=== PATIENT | female | born 1970 | race African-American/Black ===

== ENCOUNTER 2016-06-11 17:02 | Inpatient (IN) | payer BC ==
[~2016-06-11] VITALS: Ht 167.6 cm; Wt 112.5 kg
[~2016-06-11 17:02] MED LIST: CIPR10DR AD; HYDR15SO4 PO
[2016-06-11] MEDS ORDERED: CETIRIZINE HCL 10 MG TABLET PO ONE (18:30)
[2016-06-11] MEDS ORDERED: CEPHALEXIN 250 MG CAPSULE PO ONE (18:30)
--- NOTE | 2016-06-11 18:58 | PHYS DOC ---
Past Medical History Past Medical History: Hypertension Past Surgical History: Hysterectomy Additional Past Surgical Histo: PART.HYST Alcohol Use: Rarely Drug Use: None Adult General Chief Complaint Chief Complaint: SHORTNESS OF BREATH HPI HPI Patient is a 46 year old female who presents with shortness of breath. Patient reports for a couple days leading up to a hysterectomy last Saturday, and since then she has been having mild shortness of breath. She reports this waxes and wanes with no clear inciting or mitigating factors. She says she has had this in the past, and it was relieved by Zyrtec. She has not taken any of that medication during this episode. She also reports that her primary care physician restarted her on lisinopril last Saturday after her blood pressure was noted be elevated. She denies any chest discomfort. No other acute complaints. Review of Systems Review of Systems Constitutional: Denies fever or chills Eyes: Denies change in visual acuity or eye pain HENT: Denies nasal congestion or sore throat Respiratory: Shortness of breath Cardiovascular: Denies chest pain GI: Denies abdominal pain, nausea, vomiting, bloody stools or diarrhea : Denies dysuria or hematuria Musculoskeletal: Denies back pain or joint pain Integument: Denies rash or skin lesions Neurologic: Denies headache, focal weakness or sensory changes Current Medications Current Medications Allergies Allergies Allergies Coded Allergies Type Severity Reaction Last Updated Verified No Known Drug Allergies 06/07/13 No Physical Exam Physical Exam Constitutional: Well developed, well nourished, no acute distress, non-toxic appearance HENT: Normocephalic, atraumatic, bilateral external ears normal Eyes: EOMI, conjunctiva normal, no discharge Neck: Normal range of motion, no stridor Cardiovascular: Heart rate normal, regular rhythm, no murmur Lungs & Thorax: Bilateral breath sounds clear to auscultation Abdomen: Bowel sounds normal, soft, non-distended, no TTP Skin: Warm, dry, no erythema, no rash Extremities: No obvious deformity, no edema Neurologic: Alert and oriented X 3, no gross deficits noted Psychologic: Affect normal, judgement normal, mood normal Current Patient Data Vital Signs Vital Signs Date Time Temp Pulse Resp B/P Pulse Ox O2 Delivery O2 Flow Rate FiO2 06/11/16 17:43 98.2 84 20 168/79 100 Room Air 98.2 EKG EKG EKG (my read): sinus rhythm, rate 87, borderline LAD, no acute ST changes Radiology/Procedures Radiology/Procedures CXR (my read): No significant change from prior CTA chest: IMPRESSION: 1. No CT evidence of PE or focal consolidation. 2. Scattered foci of free air visualized within the imaged upper abdomen. This was relayed to the ordering physician at 22:05 on 06/11/16. Course & Med Decision Making Course & Med Decision Making Pertinent Labs and Imaging studies reviewed. (See chart for details) Patient is 46-year-old female who presents with shortness of breath. Will check EKG, chest x-ray, labs to evaluate. Dose of Zyrtec ordered as patient says she has had these symptoms in the past and Zyrtec helped relieve then. Labs notable for mild anemia as well as elevated troponin. Dose of aspirin ordered. Will obtain CTA chest to evaluate for possibility of PE. CTA results as above; air in abdomen presumably related to recent hysterectomy, especially as patient does not have any abdominal pain or tenderness. Discussed results with patient, whose symptoms remain only mild shortness of breath. Discussed with Dr. Tinsley. Discussed with Dr. Little, will admit under her care for further evaluation and treatment. Dragon Disclaimer Dragon Disclaimer This electronic medical record was generated, in whole or in part, using a voice recognition dictation system. Departure Departure Impression: Primary Impression: SOB (shortness of breath) Additional Impression: Elevated troponin Disposition: ADMITTED INPATIENT Admitting Physician: Maranda Little Condition: GUARDED Referrals: CESAR HOWARD MD (PCP) Problem Qualifiers TAYLA NAVARRETE MD Jun 11, 2016 18:58
[2016-06-11 19:45] LABS: BASO % 1 % (0-3); EOS % 0 % (0-3); HEMATOCRIT 32.9 % (36.0-47.0); HEMOGLOBIN 10.4 g/dL (12.0-15.5); LYMPH # 1.7 x10^3/uL (1.0-4.8); LYMPH % 23 % (24-48); MEAN CORPUSCULAR HEMOGLOBIN 26 pg (25-35); MEAN CORPUSCULAR HGB CONC 32 g/dL (31-37); MEAN CORPUSCULAR VOLUME 83 fL (79-100); MONO % 6 % (0-9); NEUT % 71 % (31-73); PLATELET COUNT 114 x10^3/uL (140-400); RED BLOOD COUNT 3.97 x10^6/uL (3.50-5.40); RED CELL DISTRIBUTION WIDTH 16.9 % (11.5-14.5); WHITE BLOOD COUNT 7.7 x10^3/uL (4.0-11.0)
[2016-06-11 20:00] LABS: CALCIUM 9.1 mg/dL (8.5-10.1); CREATININE 0.8 mg/dL (0.6-1.0); GFR 94.3; POTASSIUM 3.5 mmol/L (3.5-5.1)
[2016-06-11] MEDS ORDERED: ACETAMINOPHEN 325 MG TABLET. PO PRN ×2 (20:30→20:45)
[2016-06-11] MEDS ORDERED: ONDANSETRON PF 4 MG/2 ML VIAL. IV PRN ×2 (20:30→20:45)
[2016-06-11] MEDS ORDERED: ASPIRIN 81 MG TAB.CHEW PO ONE (20:30)
[2016-06-11] MEDS ORDERED: MORPHINE SULFATE 2 MG/ML DISP.SYRIN. IV PRN (20:30)
--- NOTE | 2016-06-11 20:44 | PDOC1 ---
History and Physical Date of Admission Date of Admission 06/11/16 Identification/Chief Complaint Chief Complaint sob Problems: Source Source: Chart review, Patient History of Present Illness History of Present Illness HPI HPI Patient is a 46 year old female who presents with shortness of breath for 1 week. She has had sob before she got the partial hysterectomy last Sat for fibroids. Pt looks very calm, not sob to me, but she feels sob even now with some anxiety. She said it is intermittent, no cough, no fever, chills,can happen anytime, not exertional. Denies chest pain. She said she feels sob comes with high BP. PMH + with mother and brother had [place]. She says she has had this in the past, and it was relieved by Zyrtec. She also reports that her primary care physician restarted her on lisinopril last Saturday after her blood pressure was noted be elevated. Past Medical History Cardiovascular: HTN Past Surgical History Past Surgical History: Hysterectomy Family History Family History: Heart Disease Social History Smoke: No ALCOHOL: social Drugs: None Current Problem List Problem List Problems Medical Problems: (1) Elevated troponin Status: Acute (2) SOB (shortness of breath) Status: Acute Current Medications Current Medications Current Medications Medications (Trade) Dose Ordered Sig/Andrew Start Time Stop Time Status Last Admin Dose Admin Acetaminophen (Tylenol) 650 mg PRN Q4HRS PRN 06/11/16 20:30 06/12/16 20:29 Aspirin (Children'S Aspirin) 324 mg 1X ONCE 06/11/16 20:30 06/11/16 20:31 DC 06/11/16 20:23 324 MG Cephalexin HCl (Keflex) 500 mg 1X ONCE 06/11/16 18:30 06/11/16 18:30 DC Cetirizine HCl (Zyrtec) 10 mg 1X ONCE 06/11/16 18:30 06/11/16 18:34 DC 06/11/16 19:20 10 MG Morphine Sulfate 2 mg PRN Q2HR PRN 06/11/16 20:30 06/12/16 20:29 Ondansetron HCl (Zofran) 4 mg PRN Q8HRS PRN 06/11/16 20:30 06/12/16 20:29 Allergies Allergies Allergies Coded Allergies Type Severity Reaction Last Updated Verified No Known Drug Allergies 06/07/13 No ROS Review of System CONSTITUTIONAL: No fever or chills EYES: No recent changes SKIN: No rash or itching CARDIOVASCULAR: No chest pain, syncope, palpitations, or edema RESPIRATORY: No SOB or cough GASTROINTESTINAL: No nausea, vomiting or abdominal pain NEUROLOGICAL: No headaches or weakness ENDOCRINE: No cold or heat intolerance GENITOURINARY: No urgency or frequency of urination MUSCULOSKELETAL: No back pain or joint pain LYMPHATICS: No enlarged lymph nodes PSYCHIATRIC: No anxiety or depression Physical Exam Physical Exam GEN.: No apparent distress. Alert and oriented. HEENT: Head is normocephalic, atraumatic NECK: Supple. LUNGS: Clear to auscultation. HEART: RRR, S1, S2 present. Peripheral pulses intact ABDOMEN: Soft, nontender. Positive bowel sounds. EXTREMITIES: Without any cyanosis. NEUROLOGIC: Normal speech, normal tone PSYCHIATRIC: Normal affect, normal mood. SKIN: No ulcerations Vitals Vitals Vital Signs Date Time Temp Pulse Resp B/P Pulse Ox O2 Delivery O2 Flow Rate FiO2 06/11/16 20:03 74 153/81 99 Room Air 06/11/16 17:43 98.2 20 98.2 Labs Labs Laboratory Tests Test 06/11/16 19:25 White Blood Count 7.7x10^3/uL (4.0-11.0) Red Blood Count 3.97x10^6/uL (3.50-5.40) Hemoglobin 10.4g/dL (12.0-15.5) Hematocrit 32.9% (36.0-47.0) Mean Corpuscular Volume 83fL (79-100) Mean Corpuscular Hemoglobin 26pg (25-35) Mean Corpuscular Hemoglobin Concent 32g/dL (31-37) Red Cell Distribution Width 16.9% (11.5-14.5) Platelet Count 114x10^3/uL (140-400) Neutrophils (%) (Auto) 71% (31-73) Lymphocytes (%) (Auto) 23% (24-48) Monocytes (%) (Auto) 6% (0-9) Eosinophils (%) (Auto) 0% (0-3) Basophils (%) (Auto) 1% (0-3) Neutrophils # (Auto) 5.4x10^3uL (1.8-7.7) Lymphocytes # (Auto) 1.7x10^3/uL (1.0-4.8) Monocytes # (Auto) 0.4x10^3/uL (0.0-1.1) Eosinophils # (Auto) 0.0x10^3/uL (0.0-0.7) Basophils # (Auto) 0.0x10^3/uL (0.0-0.2) Sodium Level 142mmol/L (136-145) Potassium Level 3.5mmol/L (3.5-5.1) Chloride Level 104mmol/L (98-107) Carbon Dioxide Level 28mmol/L (21-32) Anion Gap 10 (6-14) Blood Urea Nitrogen 9mg/dL (7-20) Creatinine 0.8mg/dL (0.6-1.0) Estimated GFR (Cockcroft-Gault) 94.3 Glucose Level 96mg/dL (70-99) Calcium Level 9.1mg/dL (8.5-10.1) Troponin I Quantitative 0.071ng/mL (0.000-0.055) Laboratory Tests Test 06/11/16 19:25 White Blood Count 7.7x10^3/uL (4.0-11.0) Red Blood Count 3.97x10^6/uL (3.50-5.40) Hemoglobin 10.4g/dL (12.0-15.5) Hematocrit 32.9% (36.0-47.0) Mean Corpuscular Volume 83fL (79-100) Mean Corpuscular Hemoglobin 26pg (25-35) Mean Corpuscular Hemoglobin Concent 32g/dL (31-37) Red Cell Distribution Width 16.9% (11.5-14.5) Platelet Count 114x10^3/uL (140-400) Neutrophils (%) (Auto) 71% (31-73) Lymphocytes (%) (Auto) 23% (24-48) Monocytes (%) (Auto) 6% (0-9) Eosinophils (%) (Auto) 0% (0-3) Basophils (%) (Auto) 1% (0-3) Neutrophils # (Auto) 5.4x10^3uL (1.8-7.7) Lymphocytes # (Auto) 1.7x10^3/uL (1.0-4.8) Monocytes # (Auto) 0.4x10^3/uL (0.0-1.1) Eosinophils # (Auto) 0.0x10^3/uL (0.0-0.7) Basophils # (Auto) 0.0x10^3/uL (0.0-0.2) Sodium Level 142mmol/L (136-145) Potassium Level 3.5mmol/L (3.5-5.1) Chloride Level 104mmol/L (98-107) Carbon Dioxide Level 28mmol/L (21-32) Anion Gap 10 (6-14) Blood Urea Nitrogen 9mg/dL (7-20) Creatinine 0.8mg/dL (0.6-1.0) Estimated GFR (Cockcroft-Gault) 94.3 Glucose Level 96mg/dL (70-99) Calcium Level 9.1mg/dL (8.5-10.1) Troponin I Quantitative 0.071ng/mL (0.000-0.055) VTE Prophylaxis Ordered VTE Prophylaxis Devices: Yes VTE Pharmacological Prophylaxi: Yes Assessment/Plan Assessment/Plan 1. dyspnea 2. elevated troponin 3. HTN 4. recent hysterectomy 5. anemia, with 4 plan: 1. card consult 2. check tsh, lipid panel, echo, cycle CE 3. CTA pending to rule out PE 4. need home meds dvt ppx NIVIA YUN MD Jun 11, 2016 20:44
[2016-06-11] MEDS ORDERED: hydrALAZINE 20 MG/ML VIAL. IVP PRN (20:45)
[2016-06-11] MEDS ORDERED: CONTRAST GIVEN MC PRN (21:00)
[2016-06-11] MEDS ORDERED: ENOXAPARIN 40 MG/0.4 ML DISP.SYRIN. SQ SCH (21:00)
[2016-06-11 21:30] VITALS: BP 172/98
[2016-06-11] MEDS ORDERED: IOHEXOL 300 MG/ML 75 ML VIAL IV ONE (21:30)
--- NOTE | 2016-06-11 22:09 | RAD ---
INDICATION: 46-year-old female with shortness of breath, elevated troponin. COMPARISON: None TECHNIQUE: Axial CT images obtained through the chest following the intravenous administration of 75 cc of Omni 300, utilizing an angiogram protocol. 3D images processed per protocol. One or more of the following individualized dose reduction techniques were utilized for this examination: 1. Automated exposure control; 2. Adjustment of the mA and/or kV according to patient size; 3. Use of iterative reconstruction technique. FINDINGS: The pulmonary arteries are opacified without evidence of main, lobar or proximal segmental filling defects to suggest pulmonary embolus. Distal segmental and subsegmental arteries are not adequately opacified. The aorta is normal in caliber. The heart is normal in size without pericardial effusion. No significant mediastinal or hilar lymphadenopathy is seen. No focal consolidation, pleural effusion or pneumothorax is present. The central airways appear patent. The visualized osseous structures and overlying soft tissues demonstrate no acute or suspicious finding. The visualized neck base demonstrates no acute finding. The visualized upper abdomen contains scattered foci of free air about the liver and anteriorly within the upper abdomen, including along the gastric cardia. IMPRESSION: 1. No CT evidence of PE or focal consolidation. 2. Scattered foci of free air visualized within the imaged upper abdomen. This was relayed to the ordering physician at 22:05 on 06/11/16. Electronically signed by: Tracey Ferrara (Jun 11, 2016 22:07:59)
[2016-06-11] MEDS ORDERED: LISI40TA PO (22:23)
[2016-06-11 23:17] VITALS: BP 164/98
--- NOTE | 2016-06-12 00:44 | ACF ---
Admission Forms Criteria CARDIOLOGY GRG Clinical Indications for Admission to Inpatient Care ( Place 'X' for any and all applicable criteria): Hospital admission is needed for appropriate care of the patient because of ANY ONE of the following (1): [ ] I. Hemodynamic instability as indicated by ALL of the following (1)(2)(3) (4)(5) [ ]a) Vital signs or other findings not as expected for chronic patient condition or baseline [ ]b) Instability indicated by ANY ONE of the following: [ ]i) Hypotension [ ]ii) Symptomatic Tachycardia unresponsive to treatment ( e.g., analgesia, fluids, sedation as indicated) [ ]iii) Inadequate perfusion indicated by ANY ONE of the following: [ ] 1) Lactic acidosis (> 2 mmol/L) [ ] 2) New abnormal capillary refill (> 3 seconds) [ ] 3) Reduced urine output [ ] 4) New altered mental status [ ]iv) Orthostatic vital sign changes unresponsive to treatment (e.g., fluids) [ ]v) IV inotropic or vasopressor medication required to maintain adequate blood pressure or perfusion [ ] II. Severe heart failure as indicated by ANY ONE of the following(17)(18) [ ]a) Respiratory distress [ ]b) Hypotension [ ]c) Anasarca (refractory to outpatient therapy) [ ]d) Cardiac arrhythmias of immediate concern [ ]e) Myocardial ischemia [ ] III. Cardiac arrhythmias or findings of immediate concern indicated by ANY ONE of the following (19)(20): [ ] a) Heart rhythms that are inherently dangerous or unstable indicated by ANY ONE of the following (21)(22)(23): [ ] i) Resuscitated ventricular fibrillation or cardiac arrest [ ] ii) Ventricular escape rhythm [ ] iii) Sustained ventricular tachycardia (30 seconds or more of ventricular rhythm at greater than 100 beats per minute) [ ] iv) Nonsustained ventricular tachycardia and ANY ONE of the following: [ ] 1) Suspected cardiac ischemia as cause or consequence of ventricular tachycardia [ ] 2) In setting of acute myocarditis [ ] b) Unstable cardiac conduction defects indicated by ANY ONE of the following(23)(24)(25) [ ] i) Type II second-degree atrioventricular block [ ]ii) Third-degree atrioventricular block [ ]iii) New-onset left bundle branch block with suspected myocardial ischemia [ ]c) Any heart rhythm and ANY ONE of the following (21)(22)(26)(27) (28) [ ] i) Continuous long-term ECG monitoring needed (e.g., initiation of drug requiring monitoring for more than 24 hours) [ ] ii) Patient has automatic implanted cardioverter defibrillator that is repeatedly firing, malfunctioning, or in need of immediate adjustment of settings beyond the scope of ambulatory or observation care [ ]d) Heart rhythms of concern due to ANY ONE of the following: [ ] i) Hypotension [ ] ii) Respiratory distress [ ] iii) Association with other significant symptoms (e.g., bradycardia with syncope or ongoing dizziness, supraventricular tachycardia with chest pain (14)(15)(17) [ ] IV. Monitoring for cardiac contusion beyond the scope of observation care needed [A](30)(31)(32) [ ] V. Surgical or device complication (e.g., valve replacement complication , pacemaker dysfunction) (35)(41)(44)(45)(46) [ ] . Inpatient palliative care needed. [B](49) Also use Inpatient Palliative Care Criteria [ ] VII. Nonbacterial thrombotic (marantic) endocarditis (36)(43)(47)(48) [X] VIII. Cardiology condition, symptom, or finding for which emergency and observation care has failed or are not considered appropriate. [ ] IX. Acute valvular disease requiring inpatient as indicated by ANY ONE of the following (41) [ ]a) Acute valvular regurgitation (42) [ ]b) Noninfectious valvulitis (43) [ ]c) Obstructive valve thrombosis [ ]d) Paravalvular leak [ ]e) Other significant valvular disorder remaining after emergency or observation level of care (as appropriate) [ ]X. Pericardial disease requiring inpatient treatment as indicated by ANY ONE of the following (33)(34)(35)(36)(37) [ ]a) Suspected tamponade (38)(39)(40) [ ]b) Hemopericardium [ ]c) Other significant pericardial disorder remaining after emergency or observation level of care (as appropriate) [ ] XI. Cardiac ischemia beyond scope of emergency and observation care. [ ] XII. Hypertension requiring inpatient treatment as indicated by ANY ONE of the following (6)(7)(8) [ ]a) SBP greater than 220 mm Hg or DBP greater than 120 mmHg despite treatment [ ]b) SBP greater than 140 mm Hg or DBP greater than 100 mm Hg with evidence of acute end organ damage as indicated by ANY ONE of the following [ ] i) Encephalopathy [ ] ii) Acute renal failure as indicated by new onset of ANY ONE of the following (9)(10)(11)(12)(13) [ ]1) 3-fold rise in serum creatinine from baseline [ ]2) Serum creatinine greater than 4 mg/dL ( 354 micromoles/L) with acute rise greater than 0.5 mg/dL (44.2 micromoles/L) [ ]3) Reduction of more than 75% in estimated glomerular filtration rate from baseline [ ]4) Estimated glomerular filtration rate less than 35 mL/min/1.73m2 (0.59 mL/sec/1.73m2) in child up to 18 years of age [ ]5) Cessation of urine output indicated by ALL of the following [ ]A. Adequate volume status [ ]B. Inadequate urine output as indicated by ANY ONE of the following [ ]a. Urine output less than 0.3 mL/kg/hr for 24 hours [ ]b. Anuria (urine output less than 0.1 mL/kg/hr) for 12 hours [ ] iii) Aortic dissection [ ] iv) Myocardial Ischemia [ ] v) Left ventricular heart failure [ ]vi) Retinal Hemorrhage [ ]vii) Other significant finding [ ]c) Hypertension in child requiring inpatient treatment as indicated by ALL of the following(14)(15)(16) [ ] i) Outpatient treatment not effective, not available, or not appropriate [ ]ii) SBP or DBP greater than 95th percentile for age [ ]iii) Evidence of acute end organ damage as indicated by ANY ONE of the following [ ]1) Altered mental status [ ]2) Acute renal failure as indicated by new onset of ANY ONE of the following(9)(10)(11)(12)(13) [ ]A. 3-fold rise in serum creatinine from baseline [ ]B. Serum creatinine greater than 4 mg/dL (354 micromoles/L) with acute rise greater than 0.5 mg/dL (44.2 micromoles/L) [ ]C. Reduction of more than 75% in estimated glomerular filtration rate from baseline [ ]D. Estimated glomerular filtration rate less than 35 mL/min/1.73m2 (0.59 mL/sec/1.73m2) in child up to 18 years of age [ ]E. Cessation of urine output indicated by ALL of the following [ ]a. Adequate volume status [ ]b. Inadequate urine output as indicated by ANY ONE of the following [ ]i) Urine output less than 0.3 mL/kg/hr for 24 hours [ ]ii) Anuria ( urine output less than 0.1 mL/kg/hr) for 12 hours [ ]3) Severe headache [ ]4) Visual disturbance [ ]5) Retinal hemorrhage [ ]6) Other significant finding [ ]XIII. Complications of transplanted heart indicated by ANY ONE of the following(61): [ ]a) Acute graft rejection requiring inpatient management (eg, intravenous immunosuppression)(62)(63) [ ]b) Acute graft heart failure indicated by ANY ONE of the following(64): [ ]i) Hemodynamic instability [ ]ii) Cardiac arrhythmias of immediate concern [ ]iii) Pulmonary edema that is very severe (eg, mechanical ventilation needed, imminent or likely, need for 100% oxygen to keep oxygen saturation above 90%) [ ]iv) Pulmonary edema that is persistent as indicated by ALL of the following: [ ]1) New need for oxygen therapy to keep oxygen saturation above 90% (or increased FiO2 need from baseline) [ ]2) Has not improved sufficiently with emergency department or observation care IV diuretics or other heart failure treatments[E] [ ]v) Altered mental status that is severe or persistent [ ]vi) Increased creatinine (new on laboratory test) with reduction of more than 50% in estimated glomerular filtration rate from baseline [ ]vii) Progressively (ongoing) rising creatinine (known from past laboratory test) with reduction of more than 25% in estimated glomerular filtration rate from baseline [ ]viii) Acute renal failure [ ]ix) Acute peripheral ischemia (eg, examination shows pulseless, cool, mottled, or cyanotic extremity) [ ]x) Pulmonary artery catheter monitoring needed [ ]xi) Other sign or symptom of heart failure requiring inpatient treatment (ie, too severe or not responsive to outpatient and observation care treatment) [ ]c) Infection requiring inpatient management (eg, Hemodynamic instability, need for intravenous antimicrobial treatment)(66)(67)(68)(69)(70) [ ]d) Cardiac allograft vasculopathy requiring inpatient management ( eg evidence of cardiac ischemia)(71) [ ]e) Other complication of transplanted heart (eg, stroke, severe pulmonary hypertension, severe valvular dysfunction) requiring inpatient management(72) The original [facility] content created by [facility] has been revised. The portions of the content which have been revised are identified through the use of italic text or in bold, and [facility] has neither reviewed nor approved the modified material. All other unmodified content is copyright [facility]. Please see references footnoted in the original [facility] edition 2016 Admission Criteria Met?: Yes LIUDMILA FERRELL Jun 12, 2016 00:44
[2016-06-12 03:00] VITALS: BP 160/80
[2016-06-12 06:47] LABS: CALCIUM 9.4 mg/dL (8.5-10.1); CREATININE 0.7 mg/dL (0.6-1.0); POTASSIUM 3.8 mmol/L (3.5-5.1)
[2016-06-12 06:51] LABS: BASO % 0 % (0-3); EOS % 0 % (0-3); HEMATOCRIT 30.5 % (36.0-47.0); LYMPH % 27 % (24-48); MEAN CORPUSCULAR HEMOGLOBIN 26 pg (25-35); MEAN CORPUSCULAR HGB CONC 33 g/dL (31-37); MEAN CORPUSCULAR VOLUME 78 fL (79-100); MONO % 3 % (0-9); NEUT % 69 % (31-73); PLATELET COUNT 122 x10^3/uL (140-400); RED CELL DISTRIBUTION WIDTH 16.9 % (11.5-14.5); WHITE BLOOD COUNT 7.5 x10^3/uL (4.0-11.0)
[2016-06-12 07:00] VITALS: BP 154/94
--- NOTE | 2016-06-12 08:02 | RAD ---
EXAM: Chest 2 views. HISTORY: Shortness of breath, hypertension. COMPARISON: 06/07/2013. FINDINGS: Frontal and lateral views of the chest are obtained. There are no confluent infiltrates. There is no pneumothorax or pleural effusion. The heart is not enlarged. IMPRESSION: 1. No confluent infiltrates.
--- NOTE | 2016-06-12 08:14 | EKG ---
[facility] [address] [place] [address] Test Date: 2016-06-11 Test Time: 18:38:23 Pat Name: JUSTIN OLSEN Department: Room: Gender: F Administrative Aide: CLAUDIA : 1970 Requested By: TAYLA NAVARRETE Order Number: [id number] Reading MD: Measurements Intervals [place] Rate: 87 P: -45 [place]: 190 QRS: -9 QRSD: 86 T: 12 QT: 374 QTc: 456 Interpretive Statements SINUS RHYTHM LEFTWARD AXIS RI6.01 Unconfirmed report Compared to ECG 06/07/2013 14:35:26 First degree AV block no longer present
[2016-06-12] MEDS ORDERED: ENOXAPARIN 40 MG/0.4 ML DISP.SYRIN. SQ SCH (09:00)
[2016-06-12] MEDS ORDERED: HYDROCODONE/APAP 7.5/325MG ORAL 15 ML SOLUTION. PO PRN (09:30)
--- NOTE | 2016-06-12 09:51 | PDOC2 ---
CARDIAC CONSULT DATE OF CONSULT Date of Consult DATE: 06/12/16 TIME: 09:50 REASON FOR CONSULT Reason for Consult: dyspnea REFERRING PHYSICIAN Referring Physician: Dr. Jd Payne SOURCE Source: Chart review, Patient HISTORY OF PRESENT ILLNESS HISTORY OF PRESENT ILLNESS 46 year old with dyspnea that began prior to her undergoing a lap hysterectomy @ on 06/07/2016. Worsened in the last 24 hours and she presented to ER. Was found to be hypertensive on the day of surgery @ 175 systolic and surgery was delayed for a period. Follow up with PCP post-operatively with increase in lisinopril to 40 mg daily. Patient reports she was taking BP every 5 minutes and waiting for numbers to decrease. Anxious when they did not. Reports difficulty with breathing but denies CP, palpitations, dizziness, lightheadedness, visual changes, or lower extremity edema. BP 160-180/94-[address] scan of chest negative for pulmonary embolus but noted free air in abdomen (lap hyster a week ago). Troponin levels peaked @ 0.072 and anemic with Hgb of 10. Hysterectomy for uterine fibroids and menorrhagia. No acute changes in EKG. Reason for Visit: dyspnea PAST MEDICAL HISTORY Cardiovascular: HTN Renal/: Other (menorrhagia with uterine fibroids) PAST SURGICAL HISTORY Past Surgical History: Hysterectomy (lap; 06/07/2016) FAMILY HISTORY Family History: Heart Disease (mother @ age 27; reported as cardiac; brother with cardiac @ age 49 due to methamphetamine use) SOCIAL HISTORY Smoke: No ALCOHOL: none Drugs: None CURRENT MEDICATIONS CURRENT MEDICATIONS Current Medications Medications (Trade) Dose Ordered Sig/Andrew Route PRN Reason Start Time Stop Time Status Last Admin Dose Admin Cetirizine HCl (Zyrtec) 10 mg 1X ONCE PO 06/11/16 18:30 06/11/16 18:34 DC 06/11/16 19:20 Aspirin (Children'S Aspirin) 324 mg 1X ONCE PO 06/11/16 20:30 06/11/16 20:31 DC 06/11/16 20:23 Iohexol (Omnipaque 300 Mg/ml) 75 ml 1X ONCE IV 06/11/16 21:30 06/11/16 21:31 DC 06/11/16 21:15 ALLERGIES ALLERGIES: Coded Allergies: No Known Drug Allergies (Unverified , 06/07/13) ROS Review of System 14 point review with pertinent positives in HPI PHYSICAL EXAM General: Alert, Oriented X3, Cooperative, No acute distress HEENT: Atraumatic, PERRLA, Mucous membr. moist/pink Lungs: Clear to auscultation, Normal air movement Heart: Regular rate, Normal S1, Normal S2, No murmurs, Other (no carotid bruits ; tele; SR) Abdomen: Normal bowel sounds, Soft, No tenderness Extremities: No edema, Normal pulses Skin: No rashes Neuro: Normal speech Psych/Mental Status: Mental status NL, Mood NL MUSCULOSKELETAL: No joint tenderness VITALS VITALS Vital Signs Date Time Temp Pulse Resp B/P Pulse Ox O2 Delivery O2 Flow Rate FiO2 06/12/16 07:00 98.2 81 19 154/94 99 Room Air 98.2 LABS Lab: Laboratory Tests Test 06/11/16 19:25 06/12/16 00:25 06/12/16 06:20 White Blood Count 7.7x10^3/uL (4.0-11.0) 7.5x10^3/uL (4.0-11.0) Red Blood Count 3.97x10^6/uL (3.50-5.40) 3.90x10^6/uL (3.50-5.40) Hemoglobin 10.4g/dL (12.0-15.5) 10.0g/dL (12.0-15.5) Hematocrit 32.9% (36.0-47.0) 30.5% (36.0-47.0) Mean Corpuscular Volume 83fL (79-100) 78fL (79-100) Mean Corpuscular Hemoglobin 26pg (25-35) 26pg (25-35) Mean Corpuscular Hemoglobin Concent 32g/dL (31-37) 33g/dL (31-37) Red Cell Distribution Width 16.9% (11.5-14.5) 16.9% (11.5-14.5) Platelet Count 114x10^3/uL (140-400) 122x10^3/uL (140-400) Neutrophils (%) (Auto) 71% (31-73) 69% (31-73) Lymphocytes (%) (Auto) 23% (24-48) 27% (24-48) Monocytes (%) (Auto) 6% (0-9) 3% (0-9) Eosinophils (%) (Auto) 0% (0-3) 0% (0-3) Basophils (%) (Auto) 1% (0-3) 0% (0-3) Neutrophils # (Auto) 5.4x10^3uL (1.8-7.7) 5.2x10^3uL (1.8-7.7) Lymphocytes # (Auto) 1.7x10^3/uL (1.0-4.8) 2.0x10^3/uL (1.0-4.8) Monocytes # (Auto) 0.4x10^3/uL (0.0-1.1) 0.3x10^3/uL (0.0-1.1) Eosinophils # (Auto) 0.0x10^3/uL (0.0-0.7) 0.0x10^3/uL (0.0-0.7) Basophils # (Auto) 0.0x10^3/uL (0.0-0.2) 0.0x10^3/uL (0.0-0.2) Sodium Level 142mmol/L (136-145) 143mmol/L (136-145) Potassium Level 3.5mmol/L (3.5-5.1) 3.8mmol/L (3.5-5.1) Chloride Level 104mmol/L (98-107) 105mmol/L (98-107) Carbon Dioxide Level 28mmol/L (21-32) 28mmol/L (21-32) Anion Gap 10 (6-14) 10 (6-14) Blood Urea Nitrogen 9mg/dL (7-20) 6mg/dL (7-20) Creatinine 0.8mg/dL (0.6-1.0) 0.7mg/dL (0.6-1.0) Estimated GFR (Cockcroft-Gault) 94.3 110.0 Glucose Level 96mg/dL (70-99) 100mg/dL (70-99) Calcium Level 9.1mg/dL (8.5-10.1) 9.4mg/dL (8.5-10.1) Troponin I Quantitative 0.071ng/mL (0.000-0.055) 0.069ng/mL (0.000-0.055) 0.072ng/mL (0.000-0.055) Triglycerides Level 69mg/dL (0-150) Cholesterol Level 171mg/dL (0-200) LDL Cholesterol, Calculated 67mg/dL (0-100) VLDL Cholesterol, Calculated 14mg/dL (0-40) HDL Cholesterol 90mg/dL (40-60) Cholesterol/HDL Ratio Thyroid Stimulating Hormone (TSH) 1.547uIU/mL (0.358-3.74) IMAGES IMAGES CXR: FINDINGS: Frontal and lateral views of the chest are obtained. There are no confluent infiltrates. There is no pneumothorax or pleural effusion. The heart is not enlarged. IMPRESSION: 1. No confluent infiltrates. EKG EKG no acute changes ASSESSMENT/PLAN ASSESSMENT/PLAN 1. trivial troponin elevation likely due to accelerated HTN echo to evaluate for WMA if echo without significant findings, no further cardiac work-up indicated 2. dyspnea suspect related to accelerated HTN and anxiety echo to assess LV function 3. accelerated HTN controlled on meds recommend f/u with PCP ADDENDUM @ 1313: ECHO WITH PRESERVED LV FUNCTION, NO DIASTOLIC DYSFUNCTION AND NO SEGMENTAL WMA AGREEABLE WITH DISCHARGE Problems: LUIS GREEN APRN Jun 12, 2016 09:51
--- NOTE | 2016-06-12 09:54 | PDOC3 ---
Discharge Summary Visit Information Date of Admission: Jun 11, 2016 Date of Discharge: Jun 12, 2016 Admitting Diagnosis Comment: 1. sec to anxiety 2. elevated troponin sec to HTN 3. HTN 4. recent hysterectomy Final Diagnosis Problems Medical Problems: (1) Elevated troponin Status: Acute (2) Hypertension Status: Acute (3) SOB (shortness of breath) Status: Acute Brief Hospital Course Allergies Allergies Coded Allergies Type Severity Reaction Last Updated Verified No Known Drug Allergies 06/07/13 No Vital Signs Vital Signs Date Time Temp Pulse Resp B/P Pulse Ox O2 Delivery O2 Flow Rate FiO2 06/12/16 07:00 98.2 81 19 154/94 99 Room Air 98.2 Lab Results Laboratory Tests Test 06/11/16 19:25 06/12/16 00:25 06/12/16 06:20 White Blood Count 7.7x10^3/uL (4.0-11.0) 7.5x10^3/uL (4.0-11.0) Red Blood Count 3.97x10^6/uL (3.50-5.40) 3.90x10^6/uL (3.50-5.40) Hemoglobin 10.4g/dL (12.0-15.5) 10.0g/dL (12.0-15.5) Hematocrit 32.9% (36.0-47.0) 30.5% (36.0-47.0) Mean Corpuscular Volume 83fL (79-100) 78fL (79-100) Mean Corpuscular Hemoglobin 26pg (25-35) 26pg (25-35) Mean Corpuscular Hemoglobin Concent 32g/dL (31-37) 33g/dL (31-37) Red Cell Distribution Width 16.9% (11.5-14.5) 16.9% (11.5-14.5) Platelet Count 114x10^3/uL (140-400) 122x10^3/uL (140-400) Neutrophils (%) (Auto) 71% (31-73) 69% (31-73) Lymphocytes (%) (Auto) 23% (24-48) 27% (24-48) Monocytes (%) (Auto) 6% (0-9) 3% (0-9) Eosinophils (%) (Auto) 0% (0-3) 0% (0-3) Basophils (%) (Auto) 1% (0-3) 0% (0-3) Neutrophils # (Auto) 5.4x10^3uL (1.8-7.7) 5.2x10^3uL (1.8-7.7) Lymphocytes # (Auto) 1.7x10^3/uL (1.0-4.8) 2.0x10^3/uL (1.0-4.8) Monocytes # (Auto) 0.4x10^3/uL (0.0-1.1) 0.3x10^3/uL (0.0-1.1) Eosinophils # (Auto) 0.0x10^3/uL (0.0-0.7) 0.0x10^3/uL (0.0-0.7) Basophils # (Auto) 0.0x10^3/uL (0.0-0.2) 0.0x10^3/uL (0.0-0.2) Sodium Level 142mmol/L (136-145) 143mmol/L (136-145) Potassium Level 3.5mmol/L (3.5-5.1) 3.8mmol/L (3.5-5.1) Chloride Level 104mmol/L (98-107) 105mmol/L (98-107) Carbon Dioxide Level 28mmol/L (21-32) 28mmol/L (21-32) Anion Gap 10 (6-14) 10 (6-14) Blood Urea Nitrogen 9mg/dL (7-20) 6mg/dL (7-20) Creatinine 0.8mg/dL (0.6-1.0) 0.7mg/dL (0.6-1.0) Estimated GFR (Cockcroft-Gault) 94.3 110.0 Glucose Level 96mg/dL (70-99) 100mg/dL (70-99) Calcium Level 9.1mg/dL (8.5-10.1) 9.4mg/dL (8.5-10.1) Troponin I Quantitative 0.071ng/mL (0.000-0.055) 0.069ng/mL (0.000-0.055) 0.072ng/mL (0.000-0.055) Triglycerides Level 69mg/dL (0-150) Cholesterol Level 171mg/dL (0-200) LDL Cholesterol, Calculated 67mg/dL (0-100) VLDL Cholesterol, Calculated 14mg/dL (0-40) HDL Cholesterol 90mg/dL (40-60) Cholesterol/HDL Ratio Thyroid Stimulating Hormone (TSH) 1.547uIU/mL (0.358-3.74) Laboratory Tests Test 06/11/16 19:25 06/12/16 00:25 06/12/16 06:20 White Blood Count 7.7x10^3/uL (4.0-11.0) 7.5x10^3/uL (4.0-11.0) Red Blood Count 3.97x10^6/uL (3.50-5.40) 3.90x10^6/uL (3.50-5.40) Hemoglobin 10.4g/dL (12.0-15.5) 10.0g/dL (12.0-15.5) Hematocrit 32.9% (36.0-47.0) 30.5% (36.0-47.0) Mean Corpuscular Volume 83fL (79-100) 78fL (79-100) Mean Corpuscular Hemoglobin 26pg (25-35) 26pg (25-35) Mean Corpuscular Hemoglobin Concent 32g/dL (31-37) 33g/dL (31-37) Red Cell Distribution Width 16.9% (11.5-14.5) 16.9% (11.5-14.5) Platelet Count 114x10^3/uL (140-400) 122x10^3/uL (140-400) Neutrophils (%) (Auto) 71% (31-73) 69% (31-73) Lymphocytes (%) (Auto) 23% (24-48) 27% (24-48) Monocytes (%) (Auto) 6% (0-9) 3% (0-9) Eosinophils (%) (Auto) 0% (0-3) 0% (0-3) Basophils (%) (Auto) 1% (0-3) 0% (0-3) Neutrophils # (Auto) 5.4x10^3uL (1.8-7.7) 5.2x10^3uL (1.8-7.7) Lymphocytes # (Auto) 1.7x10^3/uL (1.0-4.8) 2.0x10^3/uL (1.0-4.8) Monocytes # (Auto) 0.4x10^3/uL (0.0-1.1) 0.3x10^3/uL (0.0-1.1) Eosinophils # (Auto) 0.0x10^3/uL (0.0-0.7) 0.0x10^3/uL (0.0-0.7) Basophils # (Auto) 0.0x10^3/uL (0.0-0.2) 0.0x10^3/uL (0.0-0.2) Sodium Level 142mmol/L (136-145) 143mmol/L (136-145) Potassium Level 3.5mmol/L (3.5-5.1) 3.8mmol/L (3.5-5.1) Chloride Level 104mmol/L (98-107) 105mmol/L (98-107) Carbon Dioxide Level 28mmol/L (21-32) 28mmol/L (21-32) Anion Gap 10 (6-14) 10 (6-14) Blood Urea Nitrogen 9mg/dL (7-20) 6mg/dL (7-20) Creatinine 0.8mg/dL (0.6-1.0) 0.7mg/dL (0.6-1.0) Estimated GFR (Cockcroft-Gault) 94.3 110.0 Glucose Level 96mg/dL (70-99) 100mg/dL (70-99) Calcium Level 9.1mg/dL (8.5-10.1) 9.4mg/dL (8.5-10.1) Troponin I Quantitative 0.071ng/mL (0.000-0.055) 0.069ng/mL (0.000-0.055) 0.072ng/mL (0.000-0.055) Triglycerides Level 69mg/dL (0-150) Cholesterol Level 171mg/dL (0-200) LDL Cholesterol, Calculated 67mg/dL (0-100) VLDL Cholesterol, Calculated 14mg/dL (0-40) HDL Cholesterol 90mg/dL (40-60) Cholesterol/HDL Ratio Thyroid Stimulating Hormone (TSH) 1.547uIU/mL (0.358-3.74) Brief Hospital Course Ms. Ritchie is a 46 old AA female who was admitted for 3x mild elevation in trops, BP has been high bec of severe anxiety, PCP had just inc her lisinopril 20 to 40 mgs few days ago. She checks her bP q5 mins, so anxious, HEr usual is 130s systolic. Echo done, if normal will release and advised to take lisinopril 40 qD, I did give some xanax prn, Ff up PCP for BP Dw cards Pt seen and examined Dispo: home Discharge Information Condition at Discharge: Improved, Stable Disposition/Orders: D/C to Home Scheduled Ciprofloxacin/Hydrocortisone (Cipro Hc Otic Suspension) 3 DROP AD BID Lisinopril (Lisinopril) 1 TAB PO DAILY (Reported) Scheduled PRN Hydrocodone Bit/Acetaminophen (Hydrocodone-Apap 7.5-325/15 Soln ) 15 ML PO PRN Q6HRS PRN PRN PAIN VISHAL RICHARD MD Jun 12, 2016 09:54
[2016-06-12] MEDS ORDERED: ALPR0.25 PO (09:56)
[2016-06-12] MEDS ORDERED: LISINOPRIL 40 MG TABLET. PO SCH (10:00)
[2016-06-12] MEDS ORDERED: DEXAMETHASONE 0.1% OPHTH SOLUTION 5ML BOTTLE. AD SCH (10:00)
[2016-06-12] MEDS ORDERED: CIPROFLOXACIN 0.3% OPHTH SOLUTION 2.5ML BOTTLE. AD SCH (10:00)
[2016-06-12 10:18] VITALS: BP 138/94
--- NOTE | 2016-06-12 11:39 | CARD ---
APPROVED REPORT EXAM: Two-dimensional and M-mode echocardiogram with Doppler and color Doppler. Other Information Quality : GoodHR: 76bpm Rhythm : NSR INDICATION Short of air RISK FACTORS Hypertension 2D DIMENSIONS RVDd2.7 (2.9-3.5cm)Left Atrium(2D)4.2 (1.6-4.0cm) IVSd1.4 (0.7-1.1cm)Aortic Root(2D)3.0 (2.0-3.7cm) LVDd4.5 (3.9-5.9cm)LVOT Diameter2.2 (1.8-2.4cm) PWd2.9 (0.7-1.1cm)LVDs2.8 (2.5-4.0cm) FS (%) 38.1 %SV62.6 ml LVEF(%)68.4 (>50%) Aortic Valve AoV Peak David.126.1cm/sAoV VTI27.4cm AO Peak GR.6.4mmHgLVOT Peak David.140.1cm/s AO Mean GR.4mmHgAVA (VMAX)4.09cm2 Mitral Valve MV E Oxdgelna97.8cm/sMV E Peak Gr.2mmHg MV DECEL [id number] A Ggihnkeb39.5cm/s MV E Mean Gr.1mmHgE/A Ratio1.0 MV A [id number] Pulmonary Valve PV Peak Eaudrqmq124.5cm/s Tricuspid Valve TR P. Cmilyzuz723gl/sTR Peak Gr.24mmHg Pulmonary Vein S1 Gncpokpf44.8cm/sD2 Kpxqdave86.2cm/s PVa fcpmkqng86eujk LEFT VENTRICLE The left ventricle is normal size. There is mild concentric left ventricular hypertrophy. The left ve ntricular systolic function is normal and the ejection fraction is within normal range. The Ejection Fraction is 60-65%. There is normal LV segmental wall motion. Transmitral Doppler flow pattern is Gra de I-abnormal relaxation pattern. RIGHT VENTRICLE The right ventricle is normal size. There is normal right ventricular wall thickness. The right ventr icular systolic function is normal. ATRIA The left atrium is mildly dilated. The right atrium size is normal. The interatrial septum is intact with no evidence for an atrial septal defect or patent foramen ovale as noted on 2-D or Doppler imagi ng. AORTIC VALVE The aortic valve is normal in structure and function. Doppler and Color Flow revealed no significant aortic regurgitation. There is no significant aortic valvular stenosis. MITRAL VALVE There is no evidence of mitral valve prolapse. There is no mitral valve stenosis. Doppler and Color F low revealed mild mitral regurgitation. TRICUSPID VALVE The tricuspid valve is normal in structure and function. Doppler and Color Flow revealed trace tricus pid regurgitation. The pulmonary artery systolic pressure is estimated at 29 mmHg. There is no pulmon shirin hypertension. PULMONIC VALVE Doppler and Color Flow revealed mild pulmonic valvular regurgitation. There is no pulmonic valvular s tenosis. GREAT VESSELS The aortic root is normal in size. The ascending aorta is normal in size. The IVC is normal in size a nd collapses >50% with inspiration. PERICARDIAL EFFUSION There is no evidence of significant pericardial effusion. Critical Notification Critical Value: No <Conclusion> The left ventricular systolic function is normal and the ejection fraction is within normal range. Th e Ejection Fraction is 60-65%. There is normal LV segmental wall motion. No significant valvular disease Technically difficult study
[2016-06-12 12:41] VITALS: BP 138/94
[2016-06-12] MEDS ORDERED: CIPROFLOXACIN AD SCH (21:00)
[2016-06-12] MEDS ORDERED: HYDROCORTISONE AD SCH (21:00)
== END 2016-06-12 12:45 | disposition home or self-care (01) | DRG 880 ==
LOC: ER 17:02 → CVICU 18:26
PROVIDERS: ADMIT Internal Medicine; ATTEND Internal Medicine
DX: F41.9 Anxiety disorder, unspecified (principal); I10 Essential (primary) hypertension; D64.9 Anemia, unspecified; Z82.49 Family history of ischemic heart disease and other diseases of the circulatory system; Z90.710 Acquired absence of both cervix and uterus
CPT/HCPCS: 36415; 71020; 71275; 80048; 80061; 84443; 84484; 85027; 93005; 93306; Q9967; 99285-25

== ENCOUNTER 2016-10-20 13:53 | Emergency (ER) | payer SELFPAY ==
[~2016-10-20] VITALS: Ht 167.6 cm; Wt 111.1 kg
[~2016-10-20 13:53] MED LIST changes: +ALPR0.25 PO; +LISI40TA PO
[2016-10-20 14:04] VITALS: BP 128/69
[2016-10-20] MEDS ORDERED: KETOROLAC TROMETHAMINE 60 MG/2 ML INJ. IM ONE (15:45)
[2016-10-20] MEDS ORDERED: DEXAMETHASONE SOD PHOS 20 MG/5 ML VIAL. IM ONE (15:45)
[2016-10-20] MEDS ORDERED: TRAM-48 PO (15:50)
[2016-10-20] MEDS ORDERED: METH4TAB2 PO (15:50)
--- NOTE | 2016-10-20 15:51 | PHYS DOC ---
Past Medical History Past Medical History: Hypertension Past Surgical History: Hysterectomy Additional Past Surgical Histo: PART.HYST Alcohol Use: Rarely Drug Use: None Adult General Chief Complaint Chief Complaint: KNEE INJURY HPI HPI Patient is a 46 year old female who presents with left knee pain that began today. Patient states she was walking when her left knee gave out. Patient denies falling. Patient describes the pain as sharp on the left lateral side. Patient states the pain is worse on ambulation. Review of Systems Review of Systems Constitutional: Denies fever or chills [] Eyes: Denies change in visual acuity, redness, or eye pain [] Musculoskeletal: Left knee pain Integument: Denies rash or skin lesions [] Neurologic: Denies headache, focal weakness or sensory changes [] Endocrine: Denies polyuria or polydipsia [] Current Medications Current Medications Current Medications Medications (Trade) Dose Ordered Sig/Andrew Start Time Stop Time Status Last Admin Dose Admin Dexamethasone Sodium Phosphate (Decadron) 10 mg 1X ONCE 10/20/16 15:45 10/20/16 15:46 UNV Ketorolac Tromethamine (Toradol Im) 60 mg 1X ONCE 10/20/16 15:45 10/20/16 15:46 Allergies Allergies Allergies Coded Allergies Type Severity Reaction Last Updated Verified No Known Drug Allergies 06/07/13 No Physical Exam Physical Exam Constitutional: Well developed, well nourished, no acute distress, non-toxic appearance. [] HENT: Normocephalic, atraumatic, bilateral external ears normal, oropharynx moist, no oral exudates, nose normal. [] Skin: Warm, dry, no erythema, no rash. [] Back: No tenderness, no CVA tenderness. [] Extremities: Overweight patient, exam difficult due to weight. Left knee with no obvious deformity. Tenderness on palpation of the left lateral knee. Full range of motion to the left knee, negative Elsa sign and negative Vicente's sign negative anterior-posterior drawer sign to the left knee. Patient is holding her left knee out with no difficulty. +2 left pedal pulse. Cap refill less than 2 seconds the left lower extremity. Neurologic: Alert and oriented X 3, normal motor function, normal sensory function, no focal deficits noted. [] Psychologic: Affect normal, judgement normal, mood normal. [] Current Patient Data Vital Signs Vital Signs Date Time Temp Pulse Resp B/P (MAP) Pulse Ox O2 Delivery O2 Flow Rate FiO2 10/20/16 14:04 98.1 91 18 99 Room Air 98.1 EKG EKG [] Radiology/Procedures Radiology/Procedures [] Course & Med Decision Making Course & Med Decision Making Pertinent Labs and Imaging studies reviewed. (See chart for details) Patient is in the ED with left knee pain that began today, no known injury. Left knee x-rays interpreted by Dr. Denney are negative for any acute findings but noted for arthritis. Patient was discharged with Medrol Dosepak and Ultram for pain. Follow-up with orthopedic doctor on Saturday. Dragon Disclaimer Dragon Disclaimer This electronic medical record was generated, in whole or in part, using a voice recognition dictation system. Departure Departure Impression: Primary Impression: Degenerative joint disease of knee, left Additional Impression: Left knee sprain Disposition: HOME, SELF-CARE Condition: STABLE Referrals: CESAR HOWARD MD (PCP) SUN BAJWA MD Follow-up with the provided orthopedic doctor in the next 1-7 days Patient Instructions: Arthritis, Degenerative-Brief, Knee Sprain, Egax-fv-Wexg Additional Instructions: You were seen for left knee sprain. Your left knee x-rays are negative for any acute findings but noted for arthritis in the left knee. Follow-up with the provided orthopedic doctor in the next 1-7 days. Ice and elevate the extremity. Scripts Tramadol Hcl (ULTRAM) 50 Mg Tablet 1 TAB PO Q6HRS, #30 TAB Prov: AMBER SULLIVAN APRN 10/20/16 Methylprednisolone (MEDROL) 4 Mg Tab.ds.pk 1 PKG PO UD, #1 PKG Prov: AMBER SULLIVAN APRN 10/20/16 Problem Qualifiers Primary Impression: Degenerative joint disease of knee, left Osteoarthritis type: unspecified Qualified Codes: M17.12 - Unilateral primary osteoarthritis, left knee Additional Impression: Left knee sprain Encounter type: initial encounter Involved ligament of knee: unspecified ligament Qualified Codes: S83.92XA - Sprain of unspecified site of left knee, initial encounter AMBER SULLIVAN APRN Oct 20, 2016 15:51
--- NOTE | 2016-10-21 08:35 | RAD ---
Left knee 4 views. History: Pain left knee 4 views were taken of the left knee. There is evidence of osteoarthritis. There is joint space narrowing and spurring in the medial joint compartment. There is spurring on the patella in the femoral condyles. There is no fracture or joint effusion. Impression: 1. Arthritis left knee.
== END 2016-10-20 15:59 | disposition home or self-care (01) ==
LOC: ER 13:53
DX: S83.92XA Sprain of unspecified site of left knee, initial encounter (principal); M17.9 Osteoarthritis of knee, unspecified; I10 Essential (primary) hypertension; Z90.710 Acquired absence of both cervix and uterus; X50.9XXA Other and unspecified overexertion or strenuous movements or postures, initial encounter; Y93.89 Activity, other specified; Y99.8 Other external cause status; Y92.89 Other specified places as the place of occurrence of the external cause
CPT/HCPCS: 73564; 96372; 99284; J1100; J1885

== ENCOUNTER → 2017-01-30 | Outpatient (CLI) | payer OTHER ==
[~2017-01-30] MED LIST changes: +LIDOCAINE 1% / SOD BICARB 8.4% 20 ML VIAL. IJ ONE; +LIDOCAINE 2%/EPI 1:100,000 20 ML VIAL. IJ ONE; +LISI1TAB5 PO; +METH4TAB2 PO; +TRAM-48 PO
[2017-01-30 10:46] VITALS: BP 144/78
--- NOTE | 2017-02-01 16:45 | PATHOLOGY ---
PATHOLOGY REPORT * * * * * * * * FINAL DIAGNOSIS: A. Breast tissue, ultrasound guided right breast mass core biopsies: - Invasive ductal carcinoma, high-grade. - Focal ductal carcinoma in situ, high-grade, solid type, with associated calcifications. B. Breast tissue, right breast calcifications stereotactic core biopsies: - Focal ductal carcinoma in situ, high-grade, solid type, with associated calcifications. - Stromal fibrosis and focal periductal chronic inflammation. COMMENT: Sections of the ultrasound guided right breast mass core biopsy reveal an invasive high-grade mammary carcinoma. The tumor shows little to no tubule formation, marked nuclear atypia, and moderate to marked mitotic activity. There is focal solid type high-grade ductal carcinoma in situ with associated calcifications. The tumor measures up to 1.3 cm in greatest dimension on the glass slide. There is no definitive lymphovascular tumor invasion. Breast prognostic studies will be obtained, the results of which will be reportedly separately. Sections of the right breast stereotactic core biopsy reveal segments of breast tissue showing stromal fibrosis and a few scattered foci of high-grade ductal carcinoma in situ, solid type, with associated calcifications. There is no evidence of invasive carcinoma. The case is also examined by Dr. Bergeron, who concurs with the diagnosis. (JPM:rlm; 01/31/2017) REPORT ELECTRONICALLY SIGNED BY: Joni Porras M.D. DATE/TIME: 02/01/2017 16:44 * * * * * * * * GROSS PATHOLOGY: A. Received in formalin labeled "Justin Chau, right breast mass," are multiple needle cores of yellow-aguirre fibrofatty tissue measuring 2.4 x 1.9 x 0.3 cm in aggregate dimensions. The tissue is submitted in its entirety in cassette A1 through A3. The cold ischemic time is 7 minutes. The total formalin fixation time is 12 hours and 3 minutes. B. Received in formalin labeled "Justin Chau, right breast calcifications," are multiple needle cores of yellow-aguirre fibrofatty tissue measuring 0.9 x 2.9 x 0.6 cm in aggregate dimensions. Also received is a plastic cassette containing multiple cores of yellow-aguirre fibrofatty tissue measuring 2.9 x 2.7 x 0.6 cm in aggregate dimensions. The tissue in the cassette is transferred to cassette B3, and the remaining tissue is submitted in its entirety in cassette B1 and B2. The cold ischemic time is 12 minutes. The total formalin fixation time is 11 hours and 5 minutes. (TSD; 01/30/2017) INITIAL CPT CODE(S): A; 29178, 59597(4) B; 83744 Professional services performed [place] [facility] [place] [address] Technical services performed by [facility] at [address] [place] [address], [facility] [address], [place] [address]. SPECIMEN(S) RECEIVED: A.Right breast mass B.Right breast calcifications CLINICAL HISTORY: Right breast microcalcifications PATIENT: JUSTIN OLSEN /AGE: 11 1970 (Age: 46) PATIENT #: [id number] ALT CASE #: SPECIMEN COLLECTION DATE: 01/30/2017 SPECIMEN RECEIVED DATE: 01/30/2017 [facility] - [address] [place] [address] - PHONE: [phone] * * * END OF REPORT * * *
== END | disposition home or self-care (01) ==
LOC: MAMMO 10:27
PROVIDERS: ATTEND Surgery
DX: N63.10 Unspecified lump in the right breast, unspecified quadrant (principal); R92.0 Mammographic microcalcification found on diagnostic imaging of breast
CPT/HCPCS: 19081; 19085; 76942; 77022; C1713; G0206; J3490; 77065

== ENCOUNTER → 2017-02-20 | Outpatient (CLI) | payer BC ==
[~2017-02-20] VITALS: Ht 167.6 cm; Wt 117.0 kg
[~2017-02-20] MED LIST changes: -LIDOCAINE 1% / SOD BICARB 8.4% 20 ML VIAL. IJ ONE; -LIDOCAINE 2%/EPI 1:100,000 20 ML VIAL. IJ ONE
[2017-02-20 12:36] VITALS: BP 151/75
--- NOTE | 2017-02-21 12:45 | PATHOLOGY ---
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 See comment. COMMENT: Sections of the right axillary lymph node needle biopsy show extensive replacement of komal tissue by a metastatic epithelial neoplasm. The malignant cells are largely present in solid nests. There is only a rare focus of tubule formation. A few tumor cells appear to contain intracytoplasmic lumina. The malignant cells have ample amounts of eosinophilic cytoplasm, and possess enlarged rounded to ovoid hyperchromatic nuclei containing prominent nucleoli. The morphologic findings are supportive of the diagnosis of metastatic poorly differentiated adenocarcinoma consistent with breast origin. The case is also examined by Dr. Jan Olvera, who concurs with the diagnosis. The results are reported to Dr. Fields on 02/21/2017 at 12:30 pm. (JPM:yoanna; 02/21/2017) REPORT ELECTRONICALLY SIGNED BY: Joni Porras M.D. DATE/TIME: 02/21/2017 12:44 * * * * * * * * GROSS PATHOLOGY: The specimen is received in formalin, labeled "Amaris Olsen and right axilla node tissue", are multiple aguirre-white needle cores, the aggregate measure 1.5 x 0.3 x 0.1 cm, entirely submitted in A1-A3. (SWS; 02/20/2017) INITIAL CPT CODE(S): A; 71593 Professional services performed by [facility] [place] [address] Technical services performed by [facility] at [address] [place] [address], [facility] [address], [place] [address]. SPECIMEN(S) RECEIVED: A.Right axilla node tissue CLINICAL HISTORY: Right axilla lymph node and right breast cancer PATIENT: AMARIS OLSEN /AGE: 11 1970 (Age: 47) PATIENT #: [id number] ALT CASE #: SPECIMEN COLLECTION DATE: 02/20/2017 SPECIMEN RECEIVED DATE: 02/20/2017 [facility] - [address] [place] [address] - PHONE: [phone] * * * END OF REPORT * * *
--- NOTE | 2017-02-22 13:36 | RAD ---
Ultrasound-guided right axillary lymph node biopsy, 02/20/2017: History: Breast cancer, adenopathy An outside MR study reportedly showed right axillary adenopathy, although the images are unavailable at this time for direct comparison. Preliminary sonographic evaluation of the right axilla reveals at least 2 hypoechoic masses in the low axillary region, the largest of which measures 3.7 cm. Under local anesthesia, aseptic conditions and sonographic guidance 3 18-gauge core samples were obtained from this largest nodule. The materials were sent to pathology for evaluation. A biopsy marker was deposited within this nodule. Hemostasis was then obtained. The patient tolerated procedure well and left the department in good condition. 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 Dr. Fields has been notified of these findings.
== END | disposition home or self-care (01) ==
LOC: US 13:39
PROVIDERS: ATTEND Surgery
DX: C50.911 Malignant neoplasm of unspecified site of right female breast (principal)
CPT/HCPCS: 76942; C1713; 19081; 88305

== ENCOUNTER → 2017-02-21 | Outpatient (CLI) | payer BC ==
[2017-01-30 10:46] VITALS: BP 144/78
[~2017-02-21] MED LIST changes: +HYDR-971 PO
--- NOTE | 2017-02-21 13:41 | CARD ---
APPROVED REPORT EXAM: Two-dimensional and M-mode echocardiogram with Doppler and color Doppler. Other Information Quality : Good Rhythm : NSR INDICATION Chemotherapy evaluation 2D DIMENSIONS RVDd2.9 (2.9-3.5cm)Left Atrium(2D)3.7 (1.6-4.0cm) IVSd1.2 (0.7-1.1cm)Aortic Root(2D)3.0 (2.0-3.7cm) LVDd4.8 (3.9-5.9cm)LVOT Diameter2.2 (1.8-2.4cm) PWd1.1 (0.7-1.1cm)LVDs2.5 (2.5-4.0cm) FS (%) 36.5 %SV82.1 ml LVEF(%)67.8 (>50%) Aortic Valve AoV Peak David.114.5cm/sAoV VTI22.6cm AO Peak GR.5.2mmHgLVOT Peak David.112.7cm/s LVOT VTI 23.64cmAO Mean GR.3mmHg KAMALA (VMAX)3.36px5VUD (VTI)3.82cm2 Mitral Valve MV E Ozialnws67.8cm/sMV DECEL [id number] MV A Fgsxcdzs45.3cm/sMV DCM74re E/A Ratio1.4MV A Sojotnbb005ti MVA (PHT)3.39cm2 TDI E/Lateral E'5.5E/Medial E'9.7 Pulmonary Valve PV Peak Jeexqmbu29.4cm/sPV Peak Grad.4mmHg RVOT VTI15.3cm Tricuspid Valve TR P. Qpwyyycd905kf/sRAP JNUJQKFF8lpHb TR Peak Gr.80mjHrASNS88gqYm Pulmonary Vein S1 Gbmwhkoh62.4cm/sD2 Dlwbdsel03.4cm/s LEFT VENTRICLE The left ventricle is normal size. There is normal left ventricular wall thickness. Left ventricle sy stolic function is normal. The Ejection Fraction is 65-70%. Strain GLS Avg -24.6% (Normal values) The re is normal LV segmental wall motion. The left ventricular diastolic function and filling is normal for age. There is no ventricular septal defect visualized. RIGHT VENTRICLE The right ventricle is normal size. The right ventricular systolic function is normal. ATRIA The left atrium size is normal. The right atrium size is normal. The interatrial septum is intact wit h no evidence for an atrial septal defect or patent foramen ovale as noted on 2-D or Doppler imaging. AORTIC VALVE The aortic valve is normal in structure and function. The aortic valve is trileaflet. Doppler and Col or Flow revealed no significant aortic regurgitation. There is no significant aortic valvular stenosi s. MITRAL VALVE The mitral valve leaflets are thickened. There is no mitral valve stenosis. Doppler and Color Flow re vealed no mitral valve regurgitation noted. TRICUSPID VALVE The tricuspid valve is normal in structure and function. Doppler and Color Flow revealed trace tricus pid regurgitation. The PA pressure was estimated at 21 mmHg. There is no tricuspid valve stenosis. PULMONIC VALVE The pulmonic valve is not well visualized. Doppler and Color Flow revealed no pulmonic valvular regur gitation. There is no pulmonic valvular stenosis. GREAT VESSELS The aortic root is normal in size. Normal pulmonary venous flow (Doppler). The IVC is normal in size and collapses >50% with inspiration. PERICARDIAL EFFUSION There is no evidence of significant pericardial effusion. Critical Notification Critical Value: No <Conclusion> Left ventricle systolic function is normal. The Ejection Fraction is 65-70%. Strain GLS Avg -24.6% ( Normal values) There is normal LV segmental wall motion.
== END | disposition home or self-care (01) ==
LOC: ECHO 09:55
PROVIDERS: ATTEND Internal Medicine Hematology & Oncology
DX: C50.411 Malignant neoplasm of upper-outer quadrant of right female breast (principal); Z17.0 Estrogen receptor positive status [ER+]
CPT/HCPCS: 93306

== ENCOUNTER → 2017-02-25 | Outpatient (CLI) | payer BC ==
[2017-01-30 10:46] VITALS: BP 144/78
--- NOTE | 2017-02-25 13:26 | RAD ---
Indication: Breast cancer. The patient was administered 25 mCi of technetium 99m MDP and whole-body imaging was performed after a 3 hour delay. No prior studies are available for comparison. There is normal uptake of activity by the axial and appendicular skeleton. There is uptake of activity by the kidneys with excretion into the urinary bladder. Mild uptake in the feet bilaterally are noted consistent with degenerative change. No abnormal foci of tracer accumulation is seen to suggest osseous metastatic disease or occult fracture. Impression: No scintigraphic evidence of osseous metastatic disease.
== END | disposition home or self-care (01) ==
LOC: NM 08:21
PROVIDERS: ATTEND Internal Medicine Hematology & Oncology
DX: C50.411 Malignant neoplasm of upper-outer quadrant of right female breast (principal); Z17.0 Estrogen receptor positive status [ER+]
CPT/HCPCS: 78306; 96374; A9503

== ENCOUNTER 2017-02-26 10:16 | Day surgery (SDC) | payer BC ==
[~2017-02-26 10:16] MED LIST changes: -ALPR0.25 PO; -CIPR10DR AD; -HYDR-971 PO; -HYDR15SO4 PO; +HYDROmorphone 2 MG/ML VIAL IV; +LIDOCAINE 1% PF 2 ML VIAL. ID; -LISI1TAB5 PO; -LISI40TA PO; -METH4TAB2 PO; +MORPHINE SULFATE 2 MG/ML DISP.SYRIN. IV; +ONDANSETRON PF 4 MG/2 ML VIAL. IV; -TRAM-48 PO; +fentaNYL PF VIAL 100 MCG/2 ML VIAL IV
[2017-02-26] MEDS ORDERED: ceFAZolin 2GM PREMIX 2 GM/50 ML BAG IV (11:00)
[2017-02-26] MEDS: IV RINGERS,LACTATED 1000ML 1,000 ML IV (11:04)
[2017-02-26] MEDS: SCOPOLAMINE 1.5MG PATCH. TD (11:05)
[2017-02-26] MEDS ORDERED: LIDOCAINE 1% 20 ML VIAL. (11:25)
[2017-02-26] MEDS ORDERED: LIDOCAINE 2% PF Vial for OR 5 ML VIAL. (11:51)
[2017-02-26] MEDS ORDERED: DEXAMETHASONE SOD PHOS 20 MG/5 ML VIAL. (11:51)
[2017-02-26] MEDS ORDERED: PROPOFOL 20 ML IV (11:51)
[2017-02-26] MEDS ORDERED: SUCCINYLCHOLINE 200 MG/10 ML VIAL. (11:52)
[2017-02-26] MEDS ORDERED: ONDANSETRON PF 4 MG/2 ML VIAL. (11:52)
[2017-02-26] MEDS ORDERED: BUPIVAC MPF-EPI 0.5%-1:200000 30 ML VIAL. (12:39)
[2017-02-26] MEDS: BUPIVAC MPF-EPI 0.5%-1:200000 30 ML VIAL. INJ (12:44)
[2017-02-26] MEDS: HEPARIN SODIUM 5,000 UNIT in IV NORMAL SALINE 500ML BAG 500 ML IRR (12:44)
[2017-02-26] MEDS: fentaNYL PF VIAL 100 MCG/2 ML VIAL IV (13:56)
[2017-02-26] MEDS: PROCHLORPERAZINE 10 MG/2 ML VIAL. IV (13:57)
[2017-02-26] MEDS ORDERED: HYDROcodone/APAP 5/325MG 1 TAB TABLET (14:12)
[2017-02-26] MEDS ORDERED: HYDROcodone/APAP 5/325MG 1 TAB TABLET PO (14:15)
[2017-02-26] MEDS: HYDROcodone/APAP 5/325MG 1 TAB TABLET PO (14:34)
== END 2017-02-26 15:05 | disposition home or self-care (01) ==
LOC: SURG 10:16
DX: C50.819 Malignant neoplasm of overlapping sites of unspecified female breast (principal); I10 Essential (primary) hypertension; E66.9 Obesity, unspecified; Z90.710 Acquired absence of both cervix and uterus
CPT/HCPCS: 36556; 36561; 71010; 76937; C1769; C1788; J0330; J0690; J0780; J1100; J1644; J2405; J2704; J3010; J3490; J7040

== ENCOUNTER → 2017-02-27 | Outpatient (CLI) | payer BC ==
[2017-02-26 14:35] VITALS: BP 133/80
[~2017-02-27] VITALS: Ht 167.6 cm; Wt 117.0 kg
[~2017-02-27] MED LIST changes: +ALPR0.25 PO; +CIPR10DR AD; +CONTRAST GIVEN MC PRN; +DEXAMETHASONE SOD PHOS 20 MG/5 ML VIAL. ONE; +HEPARIN PF 500 UNIT/5 ML DISP.SYRIN. IV ONE; +HYDR-971 PO; +HYDR15SO4 PO; -HYDROmorphone 2 MG/ML VIAL IV; +IOHEXOL 240 MG/ML 50ML VIAL. PO ONE; +IOHEXOL 300 MG/ML 100ML VIAL. IV ONE; -LIDOCAINE 1% PF 2 ML VIAL. ID; +LISI1TAB5 PO; +LISI40TA PO; +METH4TAB2 PO; +MIDAZOLAM HCL/PF 2 MG/2 ML VIAL. ONE; -MORPHINE SULFATE 2 MG/ML DISP.SYRIN. IV; -ONDANSETRON PF 4 MG/2 ML VIAL. IV; +ONDANSETRON PF 4 MG/2 ML VIAL. ONE; +PHENYLEPHRINE in 0.9% NACL PF 1 MG/10 ML DISP.SYRIN. IV ONE; +PROPOFOL 40 ML IV ONE; +TRAM-48 PO; -fentaNYL PF VIAL 100 MCG/2 ML VIAL IV
--- NOTE | 2017-02-27 13:29 | RAD ---
EXAM: CT OF THE CHEST, ABDOMEN AND PELVIS WITH INTRAVENOUS CONTRAST. HISTORY: Breast cancer. TECHNIQUE: Computed tomography of the chest, abdomen and pelvis was performed after the intravenous administration of 75 mL Omnipaque 300. COMPARISON: 06/11/2016. FINDINGS: Bone windows reveal no suspicious lesions. A left-sided port catheter has its tip in the superior cavoatrial junction. Surrounding gas likely reflects recent placement. An enlarged right axillary lymph node measures 3.7 x 2.7 cm and is likely involved. Additional right subpectoral nodes measure up to 1.8 x 1.6 cm. There are no enlarged mediastinal or internal mammary nodes. There are no enlarged left axillary nodes. Skin thickening of the right breast likely reflects posttreatment change. The right breast is not completely included. No clear mass is appreciated. There are coarse calcifications inferiorly. There is no pleural or pericardial effusion. The heart is not enlarged. Lung windows reveal mild dependent atelectasis on the left. There are no clearly suspicious nodules. The liver, spleen, pancreas, adrenal glands, gallbladder and kidneys are unremarkable. There are no pathologically enlarged lymph nodes. The uterus is surgically absent. The ovaries appear to remain. There is no ascites. The appendix is not inflamed. There is no obstruction. IMPRESSION: 1. Enlarged right axillary and right subpectoral lymph nodes are likely involved. 2. No discrete breast mass is appreciated bilaterally, though they are not completely included in this field of view. Correlate for the site of concern. 3. No evidence of distant metastatic disease. *One or more of the following individualized dose reduction techniques were utilized for this examination: 1. Automated exposure control. 2. Adjustment of the mA and/or kV according to patient size. 3. Use of iterative reconstruction technique.
== END | disposition home or self-care (01) ==
LOC: CT 08:17
PROVIDERS: ATTEND Internal Medicine Hematology & Oncology
DX: C50.411 Malignant neoplasm of upper-outer quadrant of right female breast (principal); Z17.0 Estrogen receptor positive status [ER+]
CPT/HCPCS: 71260; 74177; J1100; J2250; J2370; J2405; J2704; Q9966; Q9967

== ENCOUNTER 2017-04-03 15:25 | Emergency (ER) | payer BC ==
[2017-04-03 16:24] LABS: HEMATOCRIT 33.2 % (36.0-47.0); HEMOGLOBIN 10.9 g/dL (12.0-15.5); MEAN CORPUSCULAR HEMOGLOBIN 29 pg (25-35); MEAN CORPUSCULAR HGB CONC 33 g/dL (31-37); MEAN CORPUSCULAR VOLUME 88 fL (79-100); PLATELET COUNT 54 x10^3/uL (140-400); RED BLOOD COUNT 3.78 x10^6/uL (3.50-5.40); RED CELL DISTRIBUTION WIDTH 14.9 % (11.5-14.5); WHITE BLOOD COUNT 3.2 x10^3/uL (4.0-11.0)
[2017-04-03 16:36] LABS: NEG OBC SER NEG; POS OBC SER POS
[2017-04-03 16:37] LABS: ANION GAP 9 (6-14); BLOOD UREA NITROGEN 15 mg/dL (7-20); BUN/CREATININE RATIO 21 (6-20); CALCIUM 9.1 mg/dL (8.5-10.1); CARBON DIOXIDE 29 mmol/L (21-32); CHLORIDE 104 mmol/L (98-107); CREATININE 0.7 mg/dL (0.6-1.0); GFR 109.5; GLUCOSE 123 mg/dL (70-99); POTASSIUM 3.7 mmol/L (3.5-5.1); SODIUM 142 mmol/L (136-145)
[2017-04-03 16:44] LABS: ALBUMIN 3.6 g/dL (3.4-5.0); ALK PHOS 94 U/L (46-116); ALT (SGPT) 19 U/L (14-59); AST (SGOT) 12 U/L (15-37); TOTAL BILIRUBIN 0.5 mg/dL (0.2-1.0); TOTAL PROTEIN 7.3 g/dL (6.4-8.2)
[2017-04-03 16:45] LABS: TROPONINI 0.034 ng/mL (0.000-0.055)
[2017-04-03 16:49] LABS: NT-PRO BNP 75 pg/mL (0-124)
[2017-04-03] MEDS ORDERED: IOHEXOL 300 MG/ML 100ML VIAL. IV (17:00)
[2017-04-03] MEDS ORDERED: CONTRAST GIVEN MC (17:15)
== END 2017-04-03 17:52 | disposition home or self-care (01) ==
LOC: ER 15:25
DX: R06.00 Dyspnea, unspecified (principal); I10 Essential (primary) hypertension; C50.919 Malignant neoplasm of unspecified site of unspecified female breast; Z51.11 Encounter for antineoplastic chemotherapy
CPT/HCPCS: 36415; 71010; 71275; 80053; 83880; 84484; 84703; 85027; 93005; 99285

== ENCOUNTER 2017-09-25 06:01 | Observation (INO) | payer BC ==
[2017-09-25] MEDS ORDERED: DEXAMETHASONE SOD PHOS 20 MG/5 ML VIAL. (06:35)
[2017-09-25] MEDS ORDERED: PROPOFOL 20 ML IV ×2 (06:35→10:06)
[2017-09-25] MEDS ORDERED: LIDOCAINE 2% PF Vial for OR 5 ML VIAL. (06:35)
[2017-09-25] MEDS ORDERED: ONDANSETRON PF 4 MG/2 ML VIAL. (06:36)
[2017-09-25] MEDS: IV RINGERS,LACTATED 1000ML 1,000 ML IV (06:48)
[2017-09-25] MEDS ORDERED: ONDANSETRON PF 4 MG/2 ML VIAL. IV ×2 (07:00→10:00)
[2017-09-25] MEDS ORDERED: LIDOCAINE 1% PF 2 ML VIAL. ID (07:00)
[2017-09-25] MEDS ORDERED: PROCHLORPERAZINE 10 MG/2 ML VIAL. IV ×2 (07:00→10:00)
[2017-09-25] MEDS ORDERED: fentaNYL PF VIAL 100 MCG/2 ML VIAL IV (07:00)
[2017-09-25] MEDS ORDERED: MORPHINE SULFATE 2 MG/ML DISP.SYRIN. IV ×3 (07:00→11:15)
[2017-09-25] MEDS ORDERED: fentaNYL PF VIAL 250 MCG/5 ML VIAL (07:31)
[2017-09-25] MEDS: BUPIVACAINE-EPI 0.25%-1:200000 50 ML VIAL. (07:53)
[2017-09-25] MEDS ORDERED: SCOPOLAMINE 1.5MG PATCH. TD (08:22)
[2017-09-25] MEDS ORDERED: PHENYLEPHRINE in 0.9% NACL PF 1 MG/10 ML SYRINGE. IV (08:35)
[2017-09-25] MEDS ORDERED: 0.9 % SODIUM CHLORIDE 10 ML DISP.SYRIN. IV (10:00)
[2017-09-25] MEDS ORDERED: oxyCODONE/APAP 5/325 1 TAB TABLET PO (10:00)
[2017-09-25] MEDS ORDERED: SEVOFLURANE > 120 MINUTES. IH (10:06)
[2017-09-25] MEDS: IV 1/2 NORMAL SALINE 1,000 ML IV ×2 (10:22→11:21)
[2017-09-25] MEDS: fentaNYL PF VIAL 100 MCG/2 ML VIAL IV (10:23)
[2017-09-25] MEDS ORDERED: MORPHINE SULFATE 4 MG/ML DISP.SYRIN. IV (11:15)
[2017-09-25] MEDS: LISINOPRIL 20 MG TABLET PO (11:20)
[2017-09-25] MEDS: hydroCHLOROthiazide 12.5 MG CAPSULE PO (11:20)
[2017-09-25] MEDS: oxyCODONE/APAP 5/325 1 TAB TABLET PO ×2 (12:31→18:04)
[2017-09-26] MEDS: LISINOPRIL 20 MG TABLET PO (08:02)
[2017-09-26] MEDS: hydroCHLOROthiazide 12.5 MG CAPSULE PO (08:03)
[2017-09-26] MEDS: oxyCODONE/APAP 5/325 1 TAB TABLET PO (10:49)
== END 2017-09-26 11:20 | disposition home or self-care (01) ==
LOC: SURG 06:01 → 5 SOUTH 10:30
DX: C50.911 Malignant neoplasm of unspecified site of right female breast (principal); Z85.3 Personal history of malignant neoplasm of breast
CPT/HCPCS: 19303; 97116-GP; 97165-GO; 97168-GO; 97535-GO; A7015; G0378; G0379; J0690; J1100; J2001; J2370; J2405; J2704; J3010; J7120

== ENCOUNTER 2017-10-16 21:13 | Emergency (ER) | payer SELFPAY, BC | END 2017-10-16 22:09 | disposition home or self-care (01) | LOC: ER 21:13 | DX: T85.698A Other mechanical complication of other specified internal prosthetic devices, implants and grafts, initial encounter (principal); I10 Essential (primary) hypertension; Z90.710 Acquired absence of both cervix and uterus | CPT/HCPCS: 99281; 99283 ==

== ENCOUNTER → 2018-01-14 | Outpatient (CLI) | payer SELFPAY ==
[2017-10-16 21:53] VITALS: BP 123/72
[~2018-01-14] MED LIST changes: -CONTRAST GIVEN MC PRN; -DEXAMETHASONE SOD PHOS 20 MG/5 ML VIAL. ONE; -HEPARIN PF 500 UNIT/5 ML DISP.SYRIN. IV ONE; -IOHEXOL 240 MG/ML 50ML VIAL. PO ONE; -IOHEXOL 300 MG/ML 100ML VIAL. IV ONE; +LISI-130 PO; -LISI40TA PO; -MIDAZOLAM HCL/PF 2 MG/2 ML VIAL. ONE; -ONDANSETRON PF 4 MG/2 ML VIAL. ONE; -PHENYLEPHRINE in 0.9% NACL PF 1 MG/10 ML DISP.SYRIN. IV ONE; -PROPOFOL 40 ML IV ONE; +TAMO20TA PO
--- NOTE | 2018-01-14 13:59 | RAD ---
DATE: 01/14/2018 EXAM: DIGITAL DIAGNOSTIC LT HISTORY: Right breast cancer COMPARISON: 01/09/2017 This study was interpreted with the benefit of Computerized Aided Detection (CAD). Breast Density: SCATTERED The breast parenchyma shows scattered fibroglandular densities. Breast parenchyma level B. FINDINGS: No new or enlarging breast densities are seen. Minimal benign type calcifications present. No suspicious microcalcifications have developed IMPRESSION: Stable left mammograms without evidence of malignancy. BI-RADS CATEGORY: 2 BENIGN FINDING(S) RECOMMENDED FOLLOW-UP: 12M 12 MONTH FOLLOW-UP PQRS compliance statement: Patient information was entered into a reminder system with a target due date for the next mammogram. Mammography is a sensitive method for finding small breast cancers, but it does not detect them all and is not a substitute for careful clinical examination. A negative mammogram does not negate a clinically suspicious finding and should not result in delay in biopsying a clinically suspicious abnormality. "Our facility is accredited by the [employer] Mammography [employer]."
== END | disposition home or self-care (01) ==
LOC: MAMMO 13:16
PROVIDERS: ATTEND Radiology Radiation Oncology
DX: R92.2 Inconclusive mammogram (principal); Z85.3 Personal history of malignant neoplasm of breast
CPT/HCPCS: 77065

== ENCOUNTER → 2018-05-26 | Outpatient (CLI) | payer OTHER ==
[2017-10-16 21:53] VITALS: BP 123/72
[~2018-05-26] MED LIST changes: +CONTRAST GIVEN. MC PRN; +HYDR-3164 PO; -HYDR-971 PO; -HYDR15SO4 PO; +HYDR15SO6 PO; +IOHEXOL 240 MG/ML 50ML VIAL. PO ONE; +IOHEXOL 300 MG/ML 100ML VIAL. IV ONE
--- NOTE | 2018-05-26 14:38 | RAD ---
CT of the chest, abdomen, and pelvis compared to similar study dated February 27, 2017 for malignant neoplasm of the right breast. TECHNIQUE: Contiguous helical 5 mm axial images are obtained from the thoracic inlet to the pelvic floor following administration of IV and oral contrast. Sagittal and coronal reformations are evaluated. FINDINGS: There is been interval right mastectomy and lymph node dissection. Previously seen suspicious adenopathy is no longer evident. There is a 1.9 cm irregular soft tissue density approximating the lateral thoracic neurovascular bundle seen on CT series #2 axial image #22, which likely represents scar tissue, though residual malignancy cannot be definitively excluded. Close attention to this region on follow-up is encouraged. No suspicious abnormalities of the left breast. Several benign-appearing left axillary lymph nodes are seen. No suspicious mediastinal or hilar adenopathy is evident. The previously seen Port-A-Cath is been evacuated. Within the abdomen and pelvis, the liver, spleen, pancreas, gallbladder, bilateral adrenal glands, and bilateral kidneys are all normal. Urinary bladder is fluid distended and grossly unremarkable. Uterus is absent. Ovaries are not identified. No free or loculated fluid collections are seen. No suspicious mesenteric or retroperitoneal adenopathy. There are stable appearing redemonstrated bilateral and symmetrical inguinal lymph nodes which are nonspecific. No CT evidence of pathologic enlargement. No suspicious osseous abnormalities. IMPRESSION: 1. Postsurgical changes of a right mastectomy with lymph node dissection. No suspicious residual adenopathy. There is 1.9 cm irregular soft tissue density approximating the lateral thoracic neurovascular bundle as described above, which most likely represents scar tissue, though residual neoplasm cannot be definitively excluded at this single point in time. Close attention to this region on follow-up is recommended. Electronically signed by: Silvano Botello MD (05/26/2018 2:34 PM) [id number]
--- NOTE | 2018-05-26 16:32 | RAD ---
Radionuclide bone scan, 05/26/2018: HISTORY: Breast cancer with low back pain and elbow pain Whole-body imaging was performed following IV injection of 26.1 mCi of technetium 99m MDP. Comparison is made to a study from 02/25/2017. Activity of the radionuclide about the skeleton and major joints is symmetric. Increased activity at both knees, ankles and shoulders is likely arthritic in nature. No new osseous abnormality is seen. Normal activity is present in both kidneys and the bladder. IMPRESSION: Stable bone scan without evidence of osseous metastatic disease. Electronically signed by: Emil Moore MD (05/26/2018 4:29 PM) [facility]
== END | disposition home or self-care (01) ==
LOC: NM 07:50
PROVIDERS: ATTEND Internal Medicine Hematology & Oncology
DX: C50.411 Malignant neoplasm of upper-outer quadrant of right female breast (principal); Z17.0 Estrogen receptor positive status [ER+]
CPT/HCPCS: 71260; 74177; 78306; 96374; A9503; Q9966; Q9967

== ENCOUNTER → 2018-07-18 | Outpatient (CLI) | payer OTHER ==
[2017-10-16 21:53] VITALS: BP 123/72
[~2018-07-18] MED LIST changes: -CONTRAST GIVEN. MC PRN; -IOHEXOL 240 MG/ML 50ML VIAL. PO ONE; -IOHEXOL 300 MG/ML 100ML VIAL. IV ONE
--- NOTE | 2018-07-18 15:42 | RAD ---
Right lower extremity venous upper study 07/18/2018 3:38 PM Clinical History: Right Arm Pain

IMP: No DVT seen in visualized veins Technique: Using a combination of real time ultrasound imaging and color-flow and pulse Doppler imaging techniques, including spectral analysis, graded compression and augmentation, duplex evaluation of the deep venous system of the right upper extremity was performed. Multiple images were obtained. Findings: There is no sonographic evidence of deep venous thrombosis involving the visualized deep venous structures of the right upper extremity. There is a small C shaped hypodense lesion in the right forearm without internal blood flow measuring 3 mm in diameter. This has the appearance of a small lymph node. Consider ultrasound follow-up as clinically indicated. Impression: 1.No evidence of deep venous thrombosis involving the right upper extremity 2. 3 mm C shaped nodule in the right forearm suggestive of a small, normal-appearing lymph node. Correlate with physical exam findings and consider ultrasound follow-up as clinically indicated. Electronically signed by: Jayjay Coronel MD (07/18/2018 3:39 PM) [id number]
== END | disposition home or self-care (01) ==
LOC: US 11:00
PROVIDERS: ATTEND Surgery
DX: R22.31 Localized swelling, mass and lump, right upper limb (principal); Z85.3 Personal history of malignant neoplasm of breast; Z90.11 Acquired absence of right breast and nipple
CPT/HCPCS: 93971

== ENCOUNTER → 2018-09-08 | Outpatient (CLI) | payer OTHER ==
[2017-10-16 21:53] VITALS: BP 123/72
[~2018-09-08] MED LIST changes: +IOHEXOL 300 MG/ML 100ML VIAL. IV ONE
--- NOTE | 2018-09-08 09:52 | RAD ---
EXAM: CT OF THE CHEST WITH INTRAVENOUS CONTRAST. HISTORY: Right breast cancer. TECHNIQUE: Computed tomography of the chest was performed after the intravenous administration of 75 mL Omnipaque 300. COMPARISON: 05/26/2018. FINDINGS: Images of the upper abdomen reveal no acute abnormality. Bone windows reveal no suspicious lesions. Changes of right mastectomy are again noted. There is some subcutaneous scarring and skin thickening, which appears mildly decreased. No recurrent mass is appreciated within the mastectomy bed. A scarlike changes are again noted in the right axilla, and appear decreased. There are no pathologically enlarged axillary lymph nodes bilaterally. There are no pathologically enlarged mediastinal lymph nodes. Soft tissue density in the anterior mediastinal fat is stable and is consistent with a thymic remnant or rebound thymic hyperplasia. There is no pleural or pericardial effusion. The heart is not enlarged. A 5 mm nodule in the right lower lobe medially is seen on image 40 and appears new. IMPRESSION: 1. New indeterminate 5 mm right lower lobe nodule. Follow-up is recommended in 3 months to exclude recurrence. 2. Decreased postsurgical changes in the right mastectomy bed and axilla. No evidence of local or komal recurrence. *One or more of the following individualized dose reduction techniques were utilized for this examination: 1. Automated exposure control. 2. Adjustment of the mA and/or kV according to patient size. 3. Use of iterative reconstruction technique.
== END | disposition home or self-care (01) ==
LOC: CT 11:28
PROVIDERS: ATTEND Internal Medicine Hematology & Oncology
DX: C50.919 Malignant neoplasm of unspecified site of unspecified female breast (principal); I10 Essential (primary) hypertension; F17.200 Nicotine dependence, unspecified, uncomplicated; Z90.11 Acquired absence of right breast and nipple; Z17.0 Estrogen receptor positive status [ER+]
CPT/HCPCS: 71260; Q9967

== ENCOUNTER → 2019-01-28 | Outpatient (CLI) | payer OTHER ==
[2017-10-16 21:53] VITALS: BP 123/72
[~2019-01-28] MED LIST changes: +LISI1TAB19 PO; -LISI1TAB5 PO
--- NOTE | 2019-01-28 12:51 | RAD ---
CT of the chest with contrast 01/28/2019 INDICATION: History of breast cancer. History of pulmonary nodule. Comparison: CT of the chest September 08, 2018 TECHNIQUE: Multidetector CT imaging of the chest was performed following the administration of contrast. FINDINGS: Heart size is normal. No pericardial no pathologically enlarged mediastinal adenopathy is identified. No pneumothorax, pleural effusion, or focal consolidative infiltrate is identified. Previously described right lower lobe pulmonary nodule has resolved. Right mastectomy noted. The left breast is incompletely visualized. No gross evidence of axillary adenopathy is seen. Right axillary thickening is seen on prior CT scan from May 26, 2018 has decreased in the interim. No acute osseous changes are identified. IMPRESSION: 1. Resolution of previously seen right lower lobe pulmonary nodule 2. No evidence of acute cardiopulmonary process. CT DOSING PQRS STATEMENT: One or more of the following individualized dose reduction techniques were utilized for this examination: 1. Automated exposure control 2. Adjustment of the mA and/or kV according to patient size 3. Use of iterative reconstruction technique Electronically signed by: Jayjay Coronel MD (01/28/2019 12:48 PM) [id number]
== END | disposition home or self-care (01) ==
LOC: CT 09:15
PROVIDERS: ATTEND Internal Medicine Hematology & Oncology
DX: R91.1 Solitary pulmonary nodule (principal); Z90.11 Acquired absence of right breast and nipple; Z17.0 Estrogen receptor positive status [ER+]
CPT/HCPCS: 71260; Q9967

== ENCOUNTER → 2019-01-28 | Outpatient (CLI) | payer BC, OTHER ==
[2017-10-16 21:53] VITALS: BP 123/72
[~2019-01-28] MED LIST changes: -IOHEXOL 300 MG/ML 100ML VIAL. IV ONE
--- NOTE | 2019-01-28 09:50 | RAD ---
DATE: 01/28/2019. EXAM: DIGITAL DIAGNOSTIC LT. HISTORY: Personal history of right breast cancer status post mastectomy. Left surveillance. COMPARISON: 01/14/2018. This study was interpreted with the benefit of Computerized Aided Detection (CAD). FINDINGS: Breast Density: SCATTERED The breast parenchyma shows scattered fibroglandular densities. Breast parenchyma level B.. There are no suspicious masses, microcalcifications or architectural distortion. The parenchymal pattern is stable. BI-RADS CATEGORY: 2 BENIGN FINDING(S). RECOMMENDED FOLLOW-UP: 12M 12 MONTH FOLLOW-UP. PQRS compliance statement: Patient information was entered into a reminder system with a target due date 01/29/2020 for the next mammogram. Mammography is a sensitive method for finding small breast cancers, but it does not detect them all and is not a substitute for careful clinical examination. A negative mammogram does not negate a clinically suspicious finding and should not result in delay in biopsying a clinically suspicious abnormality. "Our facility is accredited by the [employer] Mammography Program."
== END | disposition home or self-care (01) ==
LOC: MAMMO 08:47
PROVIDERS: ATTEND Radiology Radiation Oncology
DX: R92.8 Other abnormal and inconclusive findings on diagnostic imaging of breast (principal); Z85.3 Personal history of malignant neoplasm of breast; Z90.11 Acquired absence of right breast and nipple
CPT/HCPCS: 77065

== ENCOUNTER → 2019-10-05 | Outpatient (CLI) | payer BC ==
[2017-10-16 21:53] VITALS: BP 123/72
--- NOTE | 2019-10-05 17:31 | RAD ---
STUDY: MRI of the right knee without contrast INDICATION: Right knee pain. COMPARISON: No prior MRI is available for review. TECHNIQUE: Multiplanar MR imaging of the right knee performed without the use of intravenous or intra-articular contrast. FINDINGS: Menisci: The medial meniscus is intact. Abnormally small size of the anterior horn and root of the lateral meniscus compatible with complex tearing in the setting of surrounding chondrosis. Possible subtle undersurface oblique tear of the lateral meniscus posterior horn such as on image 20 series 6. The lateral meniscal body is deformed and somewhat extruded by joint line osteophytes. Cruciate ligaments: Intact. Collateral ligaments: Outward bowing of the lateral collateral ligament complex due to joint fluid and osteophytes. Thickened but intact proximal tibial collateral ligament. Tendons: Intact extensor mechanism. The additional tendons at the knee are intact. Cartilage: Patellofemoral: Extensive full-thickness chondral loss involving a majority the lateral patellar facet and extending across the median ridge. High-grade/full-thickness trochlear chondrosis most notable at the lower aspect of the lateral trochlea. Lateral compartment: High-grade and full-thickness chondral loss involving both the weightbearing and posterior nonweightbearing aspects. The lateral tibial plateau is involved to a greater degree than the medial femoral condyle. Medial compartment: Partial thickness chondrosis without a discrete full-thickness defect. Bones: Abnormal marrow signal with globular regions of intermediate T1 and T2 signal within the distal femoral shaft as well as the proximal tibia and fibula which do not extend past the physeal scars. On the T1 axial sequence the abnormal signal remains hyperintense to skeletal muscle. Subchondral marrow edema and cystic change relating to overlying chondrosis involving the lateral femorotibial compartment more so than the patellofemoral compartment. Tricompartmental osteophyte formation. Miscellaneous: Prominent Montanez's cyst measuring up to 3.1 cm AP and extending craniocaudal by 8.4 cm. Possible leakage of cyst contents superficial to the medial head gastrocnemius. Moderate to large knee joint effusion. Multilobulated cyst replacing a portion of Hoffa's fat most compatible with a ganglion. Mild surrounding edema of Hoffa's fat. Multifocal subcutaneous edema. Variant popliteal artery branching pattern which trifurcates just above the knee joint. IMPRESSION: 1. Degenerative tearing of the lateral meniscus anterior horn and root and a possible subtle oblique undersurface tear at the lateral meniscus posterior horn. The medial meniscus is intact. 2. Extensive high-grade/full-thickness chondral loss involving the lateral femorotibial and patellofemoral compartments with associated subchondral edema/cystic change as well as osteophytosis. Partial thickness chondrosis at the medial compartment. 3. Prominent Montanez's cyst measuring up to 8.4 cm craniocaudal. Either reactive edema along the inferior aspect of this cyst versus some leakage of cyst contents superficial to the medial gastrocnemius. 4. Multilobulated Hoffa's fat pad ganglion cyst with mild surrounding edema. Moderate to large knee joint effusion. 5. Multiple globular regions of abnormal marrow signal seen within the distal femoral shaft as well as within the proximal tibia and fibula but respecting the physeal scars and remaining hyperintense to muscle on the T1 axial sequence. Given patient age and obesity, this could represent red marrow reconversion but the localized nature is somewhat unusual. Recommend correlation with any history of malignancy as well as with CBC. 6. Incidental note made of variant popliteal artery anatomy which trifurcates just above the knee joint. This is noteworthy should arthroplasty be considered. Electronically signed by: CHRIS FORREST MD (10/05/2019 5:29 PM) [id number]
== END | disposition home or self-care (01) ==
LOC: MRI 13:58
PROVIDERS: ATTEND Orthopaedic Surgery
DX: M25.461 Effusion, right knee (principal); M71.21 Synovial cyst of popliteal space [Baker], right knee; M25.78 Osteophyte, vertebrae; E66.9 Obesity, unspecified
CPT/HCPCS: 73721

== ENCOUNTER → 2020-04-11 | Outpatient (CLI) | payer SELFPAY ==
[2017-10-16 21:53] VITALS: BP 123/72
[~2020-04-11] MED LIST changes: -LISI1TAB19 PO; +LISI1TAB37 PO
--- NOTE | 2020-04-11 14:04 | RAD ---
EXAM: Left breast diagnostic mammogram with tomosynthesis. HISTORY: 50-year-old female with a history of right breast cancer, status post right breast technique , presents for mammography of the left breast. TECHNIQUE: Full-field digital craniocaudal and mediolateral oblique 2D and 3D tomosynthesis images an d a 2D true lateral image of the left breast are obtained for evaluation. Computer aided detection wa s applied. COMPARISON: 01/28/2019, 01/14/2018 BREAST PARENCHYMAL DENSITY: Level B - Scattered fibroglandular densities. FINDINGS: There is no new suspicious mass, microcalcification or region of architectural distortion. There are stable areas of asymmetry within the left breast when allowing for differences in technique . IMPRESSION: BI-RADS Category 2: Benign finding(s). RECOMMENDATION: Annual mammography is recommended. If your mammogram demonstrates that you have dense breast tissue, which could hide abnormalities, and if you have other risk factors for breast cancer that have been identified, you might benefit from s upplemental screening tests that may be suggested by your ordering physician. Dense breast tissue, i n and of itself, is a relatively common condition. This information is not provided to cause undue c oncern, but rather to raise your awareness and to promote discussion with your physician regarding th e presence of other risk factors, in addition to dense breast tissue. A report of your mammography re sults will be sent to you and your physician. You should contact your physician if you have any ques tions or concerns regarding this report. Mammography is a sensitive method for finding small breast cancers, but it does not detect them all a nd is not a substitute for careful clinical examination. A negative mammogram does not negate a clin ically suspicious finding and should not result in delay in biopsying a clinically suspicious abnorma lity. PQRS compliance statement - Patient information was entered into a reminder system with a target due date for the next mammogram. "Our facility is accredited by the [employer] Mammography [employer]." Electronically signed by: Fiona Landin MD (04/11/2020 2:01 PM) [id number]
== END ==
LOC: MAMMO 13:10
PROVIDERS: ATTEND Internal Medicine Hematology & Oncology
DX: R92.2 Inconclusive mammogram (principal); Z85.3 Personal history of malignant neoplasm of breast
CPT/HCPCS: 77065; G0279; 77061

== ENCOUNTER → 2021-05-01 | Outpatient (CLI) | payer BC ==
[2017-10-16 21:53] VITALS: BP 123/72
--- NOTE | 2021-05-01 16:13 | RAD ---
EXAM: Left breast diagnostic mammogram with tomosynthesis. HISTORY: 51-year-old female with a history of right breast cancer, status post and right mastectomy, presents for annual left breast mammography. TECHNIQUE: Full-field digital craniocaudal and mediolateral oblique 2D and 3D tomosynthesis images of the left breast are obtained for evaluation. Computer aided detection was applied. COMPARISON: 01/28/2019 and 04/11/2020 BREAST PARENCHYMAL DENSITY: Level B - Scattered fibroglandular densities. FINDINGS: There is no new suspicious mass, microcalcification or region of architectural distortion. There are stable areas of benign asymmetry and nodularity within the lateral aspect of the left breas t at mid depth. IMPRESSION: BI-RADS Category 2: Benign finding(s). RECOMMENDATION: Annual mammography is recommended. If your mammogram demonstrates that you have dense breast tissue, which could hide abnormalities, and if you have other risk factors for breast cancer that have been identified, you might benefit from s upplemental screening tests that may be suggested by your ordering physician. Dense breast tissue, i n and of itself, is a relatively common condition. This information is not provided to cause undue c oncern, but rather to raise your awareness and to promote discussion with your physician regarding th e presence of other risk factors, in addition to dense breast tissue. A report of your mammography re sults will be sent to you and your physician. You should contact your physician if you have any ques tions or concerns regarding this report. Mammography is a sensitive method for finding small breast cancers, but it does not detect them all a nd is not a substitute for careful clinical examination. A negative mammogram does not negate a clin ically suspicious finding and should not result in delay in biopsying a clinically suspicious abnorma lity. PQRS compliance statement - Patient information was entered into a reminder system with a target due date for the next mammogram. "Our facility is accredited by the [employer] Mammography [employer]." Electronically signed by: Fiona Landin MD (05/01/2021 4:10 PM) [id number]
== END ==
LOC: MAMMO 14:47
PROVIDERS: ATTEND Internal Medicine Hematology & Oncology
DX: N64.89 Other specified disorders of breast (principal); R92.8 Other abnormal and inconclusive findings on diagnostic imaging of breast; Z85.3 Personal history of malignant neoplasm of breast
CPT/HCPCS: 77065; G0279; 77061

== ENCOUNTER 2021-06-08 18:32 | Emergency (ER) | payer OTHER ==
[~2021-06-08] VITALS: Ht 170.2 cm; Wt 123.0 kg
--- NOTE | 2021-06-08 19:31 | RAD ---
Single view chest dated 06/08/2021 7:28 PM: COMPARISON: 01/28/2019 Clinical Indication: Pain. Findings: Single upright portable exam of the chest was performed. Heart size and mediastinal contours are with in normal limits. Lungs are clear. No consolidation or pleural effusion. No pneumothorax. IMPRESSION: No acute radiographic abnormality. Electronically signed by: Gentry Corona MD (06/08/2021 7:29 PM) PATIENCE
--- NOTE | 2021-06-08 19:32 | RAD ---
Three-view lumbar spine dated 06/08/2021. COMPARISON: None CLINICAL INDICATION: Pain FINDINGS: 3 views lumbar spine show normal sagittal alignment. Vertebral body heights are maintained. Mild endp late hypertrophic changes throughout. Mild arthrosis lower lumbar apophyseal joints. IMPRESSION: 1. No acute radiographic abnormality. 2. Mild lower lumbar spondylosis. Electronically signed by: Gentry Corona MD (06/08/2021 7:29 PM) PATIENCE
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
[2021-06-08] MEDS ORDERED: KETOROLAC 60 MG/2 ML VIAL. IM ONE (19:45)
[2021-06-08] MEDS ORDERED: METHOCARBAMOL 750 MG TABLET PO ONE (19:45)
[2021-06-08] MEDS ORDERED: MELO15TA23 PO (20:12)
[2021-06-08] MEDS ORDERED: METH-561 PO (20:12)
[2021-06-08 20:20] VITALS: BP 167/86
[2021-06-08] MEDS ORDERED: DEXAMETHASONE 4 MG TABLET PO ONE (20:30)
== END 2021-06-08 20:20 | disposition home or self-care (01) ==
LOC: ER 18:32
DX: S33.5XXA Sprain of ligaments of lumbar spine, initial encounter (principal); S13.9XXA Sprain of joints and ligaments of unspecified parts of neck, initial encounter; M25.512 Pain in left shoulder; I10 Essential (primary) hypertension; V49.49XA Driver injured in collision with other motor vehicles in traffic accident, initial encounter; Y93.89 Activity, other specified; Y92.488 Other paved roadways as the place of occurrence of the external cause; Y99.8 Other external cause status
CPT/HCPCS: 71045; 72100; 72125; 96372; 99284; J1885